=== PATIENT | female | born 1980 | race Caucasian/White ===

== ENCOUNTER 2021-02-08 09:37 | Outpatient (CLI) | payer MEDICARE, MEDICAID, SELFPAY ==
--- NOTE | 2021-02-11 15:35 | ONC CON_ITS ---
Dr. Morel New Patient Note Patient: Kyara Kim Unit #: [id number]: 1980 Dicatated By: Dewayne Morel M.D.Date of Visit: Feb 08, 2021 Onc MED New Patient/Consult Referring Physician: Referred Self History of Present Illness: Ms. Kyara Kim, is a 41-year-old female, as per medical record she was diagnosed with malignant melanoma of left thigh in 2011, at that time she underwent wide margin excision and sentinel lymph node biopsy which was negative so no adjuvant treatment was recommended and in January 2017 she presented to local hospital with weeklong history of headaches, visual changes, balance problem and weakness further evaluation with CT scan of head showing left occipital mass, and CT scan of chest abdomen pelvis done on December 18, 2016 showed metastatic disease in the bilateral lungs, adrenal glands, right kidney, bilateral hilum and mediastinum, suspicious for metastatic disease in the liver, splenic vein thrombosis, right breast nodule, suspicious for metastatic disease. Patient underwent craniotomy and resection of brain lesion on December 21, 2016, follow-up MRI scan of brain done on December 22, 2016 showed no residual tumor., At that time she was evaluated by Dr. Ferrara, radiation oncology and tumor bed radiation was done on January 31, 2017, patient had repeat CT scan of neck chest abdomen pelvis done on February 04, 2017 showing progression of disease and also noted to have new right frontal lobe 1 cm lesion, MRI scan of the brain was done on February 11, 2017, found to have ten new lesions in the brain, at that time she was offered gamma knife, which she tolerated well but continued to have a visual problem, unable to read. She was also started on Yervoy and Opdivo on February 04, 2017, patient completed four cycles of Yervoy and Opdivo but subsequently developed severe watery diarrhea, stool were negative for C. difficile and was diagnosed with checkpoint inhibitor induced colitis which was confirmed by CT scan abdomen findings, she was started on Solu-Medrol dose of 1 mg/kg, later increased to 2 mg/kg, with improvement in diarrhea and on April 24, 2017 she was discharged home on prednisone 70 mg twice a day for 10 days and then slow tapering off., Patient had MRI scan of her brain done on April 24, 2017 and follow-up from gamma knife surgery and it showed one site of disease progression in the brain and this lesion was in left cerebellum and all other sites were either smaller or resolved. And at that time Dr. Ferrara, radiation oncologist explained that one increasing lesion in the left cerebellum had been too small to treat previously, so she was treated with gamma knife again. Her single agent maintenance therapy with Opdivo was put on hold while she was on tapering dose of prednisone for checkpoint inhibitor induced colitis, as per medical record patient did receive dose of infliximab for her Opdivo induced colitis Patient was started on single agent Opdivo, which she tolerated well and during follow-up CT PET scans showed improvement or stable disease, as per patient her last CT PET scan done on March 06, 2020 noted to have improvement and some activity noted at the left ankle and forehead, may be possible benign and at that time she was recommended to continue with single agent Opdivo, as per medical record cycle #42 was given in March 2020 and after that she decided to move to [facility], and no further treatment or follow-up was done since March 2020 Patient 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 Appetite is good, weight is stable, patient still has visual problem which is chronic since she was diagnosed with brain mets and underwent surgery followed by radiation therapy and gamma knife treatment, all the treatments were done in [place] Past Medical History: Ms. Kim's medical history consists of anxiety, attention deficit hyperactivity disorder, depression, Luetschers syndrome, MELANOMA, and substance abuse. Past Surgical History: Ms. Kim's surgical/procedural history consists of caesarean section, cranioplasty for cranial defect, resection of brain tumor, and tubal ligation. Medications: There is no information available for Current Medications - Patient. Allergies: oxyCODONE HCl Social History: Ms. Kim is single. She is an occasional smoker who smokes 0.5 packs/day. She has no history of drinking. She has indicated exposure to the following products: recreational drug use. Family History: Ms. Kim's mother is alive: HEPATITIS C. Ms. Kim's father is alive. Ms. Kim has 1 brother who is alive: melanoma. She has 1 sister who is alive. Review Of Symptoms: Review of Systems is not available for this patient. Vital Signs: Performed on Feb 08, 2021 11:08: 0, 6, 26.15, 1.83 sq.m, 66 in, 98 %, 89 /min, 18 /min, 114/79 mm(hg), 97.7 F (LOW), and 162 lbs (HIGH). Performance Status: 0 - Fully active, able to carry on all predisease activities without restrictions. (ECOG) Physical Examination: ENMT - No mouth sores, no thrush, no jaundice, no cervical lymphadenopathy, Respiratory - Lungs are clear to auscultation, Cardiovascular - Regular rate and rhythm of heart, Abdomen - Soft, bowel sounds present, Extremities - No visible edema. Lab/Imaging: Most recent lab results are not available for this patient. Impression: History of malignant melanoma of left thigh diagnosed in 2011, at that time underwent wide excision and sentinel lymph node biopsy which was negative, no adjuvant therapy was offered, and November 2016, patient developed severe headaches and CT scan of the head done which showed left occipital mass and CT scan of chest abdomen pelvis done on December 18, 2016 showed metastatic disease to bilateral lungs, adrenal glands, right kidney, right breast, bilateral hilum and mediastinal lymphadenopathy, suspicious liver metastatic disease, splenic vein thrombosis. Underwent craniotomy and resection of left occipital mass on Dec 21 2016 follow-up MRI scan done on December 22, 2016 showed no residual tumor, patient treated with tumor bed radiation in January, follow-up CT scan of chest abdomen pelvis done on February 04, 2017 shows disease progression, new right frontal lobe lesion MRI scan of brain done on February 11, 2017 found 10 more new lesions at that time she was treated with gamma knife. Patient was started on Yervoy/Opdivo on February 04, 2017, recommended 4 doses were given subsequently she developed severe colitis CT scan of abdomen confirmed, patient was treated with high-dose steroids intravenously and also given dose of infliximab and patient was discharged home on tapering dose of high-dose prednisone, while on tapering dose of prednisone her maintenance single dose Opdivo was held which was restarted later and her follow-up scan showed stable or improvement patient completed 42 doses of Opdivo in March 2020 and her follow-up CT PET scan done on March 06, 2020 showed improvement in previously noted disease areas some activity noted in left ankle and forehead could be benign. All the treatments were done in [place], at that time patient decided to move to [facility], so no more treatment or follow-up since March 2020 History of recreational drug use methamphetamine History of chronic lower back pain Plan: Discussed with patient regarding her disease status, question concerns patient is here to establish her care and for further treatment or observation plan, at this point, based on her medical records, patient has history of extensive metastatic malignant melanoma, and no treatment received since March 2020 when she received cycle #42 of single agent Opdivo, after that patient stopped taking any treatment as she was in the process of moving to [facility] from [place]. So at this point will consider baseline CBC and CMP and also consider MRI scan of the head and CT PET scan to assess disease status and compare with 1 from February 2020 and if shows no disease progression stable or resolution, will continue to observe on the other hand if it shows disease progression, will consider guardant 360 to identify targetable mutation or may consider restarting Opdivo as in the past patient had good response and tolerance. We will also give her prescription for lorazepam for her anxiety. And patient return to clinic after CT PET scan/MRI scan done for further discussion Signed By: Dewayne Morel M.D. <<Signature on File>>
== END 2021-02-08 09:38 | disposition home or self-care (01) ==
LOC: ONCMED 09:48
PROVIDERS: Family Provider Family Medicine; Visit Provider Internal Medicine Hematology & Oncology
DX: C49.22 Malignant neoplasm of connective and soft tissue of left lower limb, including hip (principal); C78.01 Secondary malignant neoplasm of right lung; C78.02 Secondary malignant neoplasm of left lung; C79.71 Secondary malignant neoplasm of right adrenal gland; C79.72 Secondary malignant neoplasm of left adrenal gland; C79.01 Secondary malignant neoplasm of right kidney and renal pelvis; C79.81 Secondary malignant neoplasm of breast; C77.1 Secondary and unspecified malignant neoplasm of intrathoracic lymph nodes; C78.7 Secondary malignant neoplasm of liver and intrahepatic bile duct; C78.89 Secondary malignant neoplasm of other digestive organs; C79.31 Secondary malignant neoplasm of brain; F15.11 Other stimulant abuse, in remission; M54.5 Low back pain; G89.29 Other chronic pain; Z79.52 Long term (current) use of systemic steroids; Z79.899 Other long term (current) drug therapy; Z92.21 Personal history of antineoplastic chemotherapy
CPT/HCPCS: 99204

== ENCOUNTER 2021-02-20 12:38 | Outpatient (CLI) | payer MEDICARE, MEDICAID, SELFPAY ==
--- NOTE | 2021-02-20 13:21 | MR_ITS ---
WS: [id number] MRI HEAD WITH CONTRAST TECHNIQUE: Sagittal T1, T2 axial, T2 axial FLAIR, axial susceptibility weighted imaging, axial diffus ion weighted images, and coronal T2 images were obtained. Pre and post-T1 axial and post T1 coronal i mages. ADC and FSPGR images. CLINICAL INFORMATION: METASTATIC MELANOMA COMPARISON: None. FINDINGS: No evidence of restricted diffusion to suggest acute ischemia. Ventricular system and basal cisterns are patent. Enhancing lesion within the left inferior cerebellum measuring approximately 8.0 x 11.2 m m with corresponding T2 signal abnormality. Small amount of central cavitation. Findings suspicious f or metastatic disease. Recommend correlation with prior gamma knife therapy. Outside comparisons woul d be helpful if available. Evidence of prior postoperative changes with prior occipital craniotomy with resection cavity in the posterior temporal lobe. Associated serpiginous enhancement with encephalomalacia and gliosis. Small amount of hemosiderin. Patchy enhancement most likely due to post therapeutic and postoperative bradley es. Prior comparisons would be helpful to assess for change. Chronic focus of hemosiderin in the left frontoparietal junction. Chronic foci of hemosiderin in the left cerebellum. Normal optic chiasm and pituitary infundibulum. Normal cavernous sinuses and Meckel' s cave. No other abnormal enhancing intraparenchymal lesions. Normal dural venous sinuses. Peripheral enhancing T1 hyperintense suprasellar lesion along the pituitary infundibulum measuring ap proximately 6 mm. This is at the infundibular insertion. Normal underlying pituitary tissue. Associat ed T2 hyperintensity. 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 No significant mass effect on the optic chiasm. Infundibulum slightly displaced right to left. MR/MR head wo/w con [id number] IMPRESSION: 1. Prior postoperative changes left parietotemporal craniotomy with resection cavity in the posterior temporal lobe. Associated encephalomalacia and gliosis. Serpiginous enhancement with hemosiderin. Enhancement is nonspecific likely du e to postoperative and treatment-related changes. Comparison with outside exami nations would be helpful to assess stability. 2. Intensely enhancing lesion in the inferior left cerebellum measuring 8.0 x 11.2 mm. Associated T2 hyperintensity with central cavitation. Findings are sergei picious for metastatic disease however this can be seen with sequelae of prior gamma knife therapy. Recommend correlation with clinical history. Comparison wi outside examinations would be helpful to assess change. 3. A few foci of hemosiderin described above. 4. T1 hyperintense 6 mm peripheral enhancing suprasellar lesion most likely re presents incidental Rathke's cleft cyst. No significant impingement on the opti c chiasm. Recommend correlation with pituitary function studies. Recommend 3-6 month follow-up with MRI pituitary protocol without and with gadolinium enhance ment.
[2021-02-20] MEDS: gadobenate dimeglumine 20 mL vial IV (14:16)
== END 2021-02-20 12:39 | disposition home or self-care (01) ==
LOC: RADSHAW 12:42 → ONCMED 14:27
PROVIDERS: Visit Provider Internal Medicine Hematology & Oncology
DX: C43.72 Malignant melanoma of left lower limb, including hip (principal); C79.31 Secondary malignant neoplasm of brain; C79.89 Secondary malignant neoplasm of other specified sites; Z79.899 Other long term (current) drug therapy
CPT/HCPCS: 70553; 96523; A9577

== ENCOUNTER 2021-02-22 06:29 | Outpatient (CLI) | payer MEDICARE, MEDICAID, SELFPAY ==
[2021-02-22 13:45] LABS: Basophils # 0.1 10^3/uL (0.0-0.1); Basophils % 0.7 %; Eosinophils # 0.2 10^3/uL (0.0-0.8); Eosinophils % 2.3 %; Hematocrit 40.2 % (37.0-47.0); Hemoglobin 13.2 g/dL (11.5-15.3); Lymphocytes # 2.5 10^3/uL (0.8-4.8); Mean Corpuscular HGB Conc 32.8 g/dL (30.0-36.0); Mean Corpuscular Hemoglobin 31.1 pg (28.0-34.0); Mean Corpuscular Volume 94.8 fL (81-99); Mean Platelet Volume 10.2 fL (7.4-10.4); Monocytes # 0.7 10^3/uL (0.2-0.9); Monocytes % 9.3 %; Neutrophils # 3.61 10^3/uL (1.8-7.7); Neutrophils % 51.6 %; Nucleated Red Blood Cells % 0 %; Platelet Count 251 10^3/cmm (130-400); Red Blood Count 4.24 10^6/uL (4.1-5.3); Red Cell Distribution Width 12.3 % (12.1-15.1)
[2021-02-22 14:05] LABS: Alanine Aminotransferase 18 U/L (0-33); Albumin Level 4.3 g/dL (3.5-5.2); Alkaline Phosphatase 59 IU/L (35-105); Anion Gap 12.9 (5-19); Aspartate Amino Transferase 17 U/L (0-32); Blood Urea Nitrogen 7 mg/dL (6-20); Calcium 8.7 mg/dL (8.5-10.5); Carbon Dioxide 24 mmol/L (22-29); Chloride 101 mmol/L (98-107); Globulin 2.4 g/dL (1.3-4.6); Glomerular Filtration Rate 137.4 mL/min (90-130); Glucose 85 mg/dL (65-115); Osmolality Calculated 275 mOsm/kg (285-295); Potassium 3.9 mmol/L (3.5-5.1); Sodium 134 mmol/L (136-145); Total Bilirubin 0.2 mg/dL (0.15-1.2); Total Protein 6.7 g/dL (6.6-8.7)
== END 2021-02-22 06:30 | disposition home or self-care (01) ==
PROVIDERS: Visit Provider Internal Medicine Hematology & Oncology
DX: C43.72 Malignant melanoma of left lower limb, including hip (principal); C79.31 Secondary malignant neoplasm of brain; Z79.899 Other long term (current) drug therapy
CPT/HCPCS: 36415; 80053; 85025

== ENCOUNTER 2021-03-06 06:00 | Outpatient (CLI) | payer MEDICARE, MEDICAID, SELFPAY ==
[2021-03-06 08:45] LABS: Basophils # 0.1 10^3/uL (0.0-0.1); Basophils % 0.8 %; Eosinophils # 0.2 10^3/uL (0.0-0.8); Eosinophils % 2.1 %; Hematocrit 42.2 % (37.0-47.0); Hemoglobin 13.8 g/dL (11.5-15.3); Lymphocytes % 27.2 %; Mean Corpuscular HGB Conc 32.7 g/dL (30.0-36.0); Mean Corpuscular Hemoglobin 31.3 pg (28.0-34.0); Mean Corpuscular Volume 95.7 fL (81-99); Mean Platelet Volume 10.7 fL (7.4-10.4); Monocytes # 0.8 10^3/uL (0.2-0.9); Neutrophils % 58.8 %; Nucleated Red Blood Cells % 0 %; Platelet Count 231 10^3/cmm (130-400); Red Blood Count 4.41 10^6/uL (4.1-5.3); Red Cell Distribution Width 12.1 % (12.1-15.1); White Blood Count 7.2 10^3/uL (4.0-10.0)
[2021-03-06 09:16] LABS: Alanine Aminotransferase 16 U/L (0-33); Albumin Level 4.4 g/dL (3.5-5.2); Alkaline Phosphatase 55 IU/L (35-105); Anion Gap 15.2 (5-19); Aspartate Amino Transferase 15 U/L (0-32); Blood Urea Nitrogen 11 mg/dL (6-20); Calcium 8.6 mg/dL (8.5-10.5); Carbon Dioxide 23 mmol/L (22-29); Chloride 102 mmol/L (98-107); Globulin 2.2 g/dL (1.3-4.6); Glomerular Filtration Rate 137.4 mL/min (90-130); Glucose 90 mg/dL (65-115); Osmolality Calculated 281 mOsm/kg (285-295); Potassium 4.2 mmol/L (3.5-5.1); Sodium 136 mmol/L (136-145); Total Bilirubin 0.3 mg/dL (0.15-1.2); Total Protein 6.6 g/dL (6.6-8.7)
--- NOTE | 2021-03-06 17:39 | ONC FU_ITS ---
Dr. Morel follow up note Patient: Kyara Kim Unit #: [id number]: [id number] Dicatated By: Dewayne Morel M.D.Date of Visit:Mar 06, 2021 Onc Med Follow-up/Prog Note History of Present Illness: Ms. Kyara Kim, is a 41-year-old female, as per medical record she was diagnosed with malignant melanoma of left thigh in 2011, at that time she underwent wide margin excision and sentinel lymph node biopsy which was negative so no adjuvant treatment was recommended and in January 2017 she presented to local hospital with weeklong history of headaches, visual changes, balance problem and weakness further evaluation with CT scan of head showing left occipital mass, and CT scan of chest abdomen pelvis done on December 18, 2016 showed metastatic disease in the bilateral lungs, adrenal glands, right kidney, bilateral hilum and mediastinum, suspicious for metastatic disease in the liver, splenic vein thrombosis, right breast nodule, suspicious for metastatic disease. Patient underwent craniotomy and resection of brain lesion on December 21, 2016, follow-up MRI scan of brain done on December 22, 2016 showed no residual tumor., At that time she was evaluated by Dr. Ferrara, radiation oncology and tumor bed radiation was done on January 31, 2017, patient had repeat CT scan of neck chest abdomen pelvis done on February 04, 2017 showing progression of disease and also noted to have new right frontal lobe 1 cm lesion, MRI scan of the brain was done on February 11, 2017, found to have ten new lesions in the brain, at that time she was offered gamma knife, which she tolerated well but continued to have a visual problem, unable to read. She was also started on Yervoy and Opdivo on February 04, 2017, patient completed four cycles of Yervoy and Opdivo but subsequently developed severe watery diarrhea, stool were negative for C. difficile and was diagnosed with checkpoint inhibitor induced colitis which was confirmed by CT scan abdomen findings, she was started on Solu-Medrol dose of 1 mg/kg, later increased to 2 mg/kg, with improvement in diarrhea and on April 24, 2017 she was discharged home on prednisone 70 mg twice a day for 10 days and then slow tapering off., Patient had MRI scan of her brain done on April 24, 2017 and follow-up from gamma knife surgery and it showed one site of disease progression in the brain and this lesion was in left cerebellum and all other sites were either smaller or resolved. And at that time Dr. Ferrara, radiation oncologist explained that one increasing lesion in the left cerebellum had been too small to treat previously, so she was treated with gamma knife again. Her single agent maintenance therapy with Opdivo was put on hold while she was on tapering dose of prednisone for checkpoint inhibitor induced colitis, as per medical record patient did receive dose of infliximab for her Opdivo induced colitis Patient was started on single agent Opdivo, which she tolerated well and during follow-up CT PET scans showed improvement or stable disease, as per patient her last CT PET scan done on March 06, 2020 noted to have improvement and some activity noted at the left ankle and forehead, may be possible benign and at that time she was recommended to continue with single agent Opdivo, as per medical record cycle #42 was given in March 2020 and after that she decided to move to [facility], and no further treatment or follow-up was done since March 2020 Patient 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 And no other abnormality seen MRI scan of the brain done on February 20, 2021 showed no evidence of progression at left occipital resection cavity. Peripheral enhancing left cerebellar lesion measuring 9.3 x 7.3 mm has significantly increased in size since prior MRI scan done in 2019 with a new surrounding T2 signal abnormality Came for follow-up, denies any specific complaint except chronic back pain but no nausea or vomiting no diarrhea constipation, no headaches blurred vision double vision, no seizure-like activity, no new bony pains, appetite is good, now working full-time as a waiter/waitress buffet in a local restaurant Medications: This patient reports not taking external medications. Allergies: oxyCODONE HCl Review of Systems: Review of Systems is not available for this patient. Vital Signs: Performed on Mar 06, 2021 08:26 Height - 66.00 in Weight - 168.2 lbs (HIGH) BSA - 1.86 sq.m BMI - 27.15 Temperature - 97.8 F (LOW) Pulse - 89 /min Respiration - 18 /min BP - 111/76 mm(hg) O2 Sat - 98 % Pain - 5 Fatigue - 5 Performance Status: 0 - Fully active, able to carry on all predisease activities without restrictions. (ECOG) Physical Examination: ENMT - No mouth sores, no thrush, no jaundice, Respiratory - Lungs are clear to auscultation, Cardiovascular - Regular rate and rhythm of heart, Abdomen - Soft, bowel sounds present, Extremities - No visible edema. Lab/Imaging: Most recent lab results are not available for this patient. Impression: History of malignant melanoma of left thigh diagnosed in 2011, at that time underwent wide excision and sentinel lymph node biopsy which was negative, no adjuvant therapy was offered, and November 2016, patient developed severe headaches and CT scan of the head done which showed left occipital mass and CT scan of chest abdomen pelvis done on December 18, 2016 showed metastatic disease to bilateral lungs, adrenal glands, right kidney, right breast, bilateral hilum and mediastinal lymphadenopathy, suspicious liver metastatic disease, splenic vein thrombosis. Underwent craniotomy and resection of left occipital mass on Dec 21 2016 follow-up MRI scan done on December 22, 2016 showed no residual tumor, patient treated with tumor bed radiation in January, follow-up CT scan of chest abdomen pelvis done on February 04, 2017 shows disease progression, new right frontal lobe lesion MRI scan of brain done on February 11, 2017 found 10 more new lesions at that time she was treated with gamma knife. Patient was started on Yervoy/Opdivo on February 04, 2017, recommended 4 doses were given subsequently she developed severe colitis CT scan of abdomen confirmed, patient was treated with high-dose steroids intravenously and also given dose of infliximab and patient was discharged home on tapering dose of high-dose prednisone, while on tapering dose of prednisone her maintenance single dose Opdivo was held which was restarted later and her follow-up scan showed stable or improvement patient completed 42 doses of Opdivo in March 2020 and her follow-up CT PET scan done on March 06, 2020 showed improvement in previously noted disease areas some activity noted in left ankle and forehead could be benign. All the treatments were done in [place], at that time patient decided to move to [facility], so no more treatment or follow-up since March 2020 History of recreational drug use methamphetamine History of chronic lower back pain Plan: Discussed with patient regarding her labs white blood count 7.2 hemoglobin 13.8 hematocrit 42.2 platelets 231,000 CMP within normal limits and MRI scan of the head which shows 9.3 x 7.3 mm lesion in the left cerebellar area has significant increase in size since MRI scan done in 2019. And CT PET scan done on February 24, 2021 showed there is a minimal FDG activity noted in solitary 1.1 cm right axillary lymph node, no other abnormality seen Clinically, patient doing well with no new signs symptoms or follow-up PET scan shows solitary 1.1 cm right axillary lymph node with minimal FDG activity and MRI scan of the brain shows peripheral enhancing left cerebellar lesion 9.3 x 7.3 cm and no evidence of progression at left occipital resection cavity., At this point, will refer her to melanoma clinic at [place] for evaluation of left cerebellar lesion, as in the past patient underwent radiation therapy to the brain for brain mets as well as gamma knife to the left cerebellar lesion all the treatment were done in [place] and for single lesion in right axilla, may benefit from excisional biopsy and for evaluation for clinical trial if available She will return to clinic 1 week after her visit to [place] [facility] Signed By: Dewayne Morel M.D. <<Signature on File>>
== END 2021-03-06 06:01 | disposition home or self-care (01) ==
PROVIDERS: Visit Provider Internal Medicine Hematology & Oncology
DX: C79.31 Secondary malignant neoplasm of brain (principal); C78.01 Secondary malignant neoplasm of right lung; C78.02 Secondary malignant neoplasm of left lung; C79.71 Secondary malignant neoplasm of right adrenal gland; C79.72 Secondary malignant neoplasm of left adrenal gland; C79.01 Secondary malignant neoplasm of right kidney and renal pelvis; C79.81 Secondary malignant neoplasm of breast; C77.8 Secondary and unspecified malignant neoplasm of lymph nodes of multiple regions; C78.7 Secondary malignant neoplasm of liver and intrahepatic bile duct; I82.890 Acute embolism and thrombosis of other specified veins; F15.11 Other stimulant abuse, in remission; M54.5 Low back pain; G89.29 Other chronic pain; Z79.899 Other long term (current) drug therapy; Z92.21 Personal history of antineoplastic chemotherapy; Z92.3 Personal history of irradiation
CPT/HCPCS: 36591; 80053; 85025; 99214

== ENCOUNTER 2021-06-01 08:27 | Outpatient (CLI) | payer MEDICARE, MEDICAID, SELFPAY ==
[2021-06-01 09:00] LABS: Basophils # 0.1 10^3/uL (0.0-0.1); Basophils % 0.8 %; Eosinophils # 0.1 10^3/uL (0.0-0.8); Eosinophils % 1.9 %; Hemoglobin 13.7 g/dL (11.5-15.3); Lymphocytes # 2.2 10^3/uL (0.8-4.8); Lymphocytes % 30.2 %; Mean Corpuscular HGB Conc 34.3 g/dL (30.0-36.0); Mean Corpuscular Hemoglobin 32.5 pg (28.0-34.0); Mean Corpuscular Volume 94.8 fl (81-99); Mean Platelet Volume 10.3 fL (7.4-10.4); Monocytes # 0.7 10^3/uL (0.2-0.9); Monocytes % 9.3 %; Neutrophils % 57.5 %; Nucleated Red Blood Cells % 0 %; Platelet Count 244 10^3/cmm (130-400); Red Blood Count 4.22 10^6/uL (4.1-5.3); Red Cell Distribution Width 12.6 % (12.1-15.1); White Blood Count 7.3 10^3/uL (4.0-10.0)
[2021-06-01 09:26] LABS: Alanine Aminotransferase 17 U/L (0-33); Albumin Level 4.4 g/dL (3.5-5.2); Alkaline Phosphatase 61 IU/L (35-105); Anion Gap 13.7 (5-19); Aspartate Amino Transferase 15 U/L (0-32); Blood Urea Nitrogen 12 mg/dL (6-20); Calcium 9.4 mg/dL (8.5-10.5); Carbon Dioxide 26 mmol/L (22-29); Chloride 105 mmol/L (98-107); Globulin 2.7 g/dL (1.3-4.6); Glomerular Filtration Rate 137.4 mL/min (90-130); Glucose 104 mg/dL (65-115); Osmolality Calculated 290 mOsm/kg (285-295); Potassium 4.7 mmol/L (3.5-5.1); Sodium 140 mmol/L (136-145); Total Bilirubin 0.3 mg/dL (0.15-1.2); Total Protein 7.1 g/dL (6.6-8.7)
--- NOTE | 2021-06-01 11:42 | ONC FU_ITS ---
Dr. Morel follow up note Patient: Kyara Kim Unit #: [id number]: 1980 Dicatated By: Dewayne Morel M.D.Date of Visit:Jun 01, 2021 Onc Med Follow-up/Prog Note History of Present Illness: Ms. Kyara Kim, is a 41-year-old female, as per medical record she was diagnosed with malignant melanoma of left thigh in 2011, at that time she underwent wide margin excision and sentinel lymph node biopsy which was negative so no adjuvant treatment was recommended and in January 2017 she presented to local hospital with weeklong history of headaches, visual changes, balance problem and weakness further evaluation with CT scan of head showing left occipital mass, and CT scan of chest abdomen pelvis done on December 18, 2016 showed metastatic disease in the bilateral lungs, adrenal glands, right kidney, bilateral hilum and mediastinum, suspicious for metastatic disease in the liver, splenic vein thrombosis, right breast nodule, suspicious for metastatic disease. Patient underwent craniotomy and resection of brain lesion on December 21, 2016, follow-up MRI scan of brain done on December 22, 2016 showed no residual tumor., At that time she was evaluated by Dr. Ferrara, radiation oncology and tumor bed radiation was done on January 31, 2017, patient had repeat CT scan of neck chest abdomen pelvis done on February 04, 2017 showing progression of disease and also noted to have new right frontal lobe 1 cm lesion, MRI scan of the brain was done on February 11, 2017, found to have ten new lesions in the brain, at that time she was offered gamma knife, which she tolerated well but continued to have a visual problem, unable to read. She was also started on Yervoy and Opdivo on February 04, 2017, patient completed four cycles of Yervoy and Opdivo but subsequently developed severe watery diarrhea, stool were negative for C. difficile and was diagnosed with checkpoint inhibitor induced colitis which was confirmed by CT scan abdomen findings, she was started on Solu-Medrol dose of 1 mg/kg, later increased to 2 mg/kg, with improvement in diarrhea and on April 24, 2017 she was discharged home on prednisone 70 mg twice a day for 10 days and then slow tapering off., Patient had MRI scan of her brain done on April 24, 2017 and follow-up from gamma knife surgery and it showed one site of disease progression in the brain and this lesion was in left cerebellum and all other sites were either smaller or resolved. And at that time Dr. Ferrara, radiation oncologist explained that one increasing lesion in the left cerebellum had been too small to treat previously, so she was treated with gamma knife again. Her single agent maintenance therapy with Opdivo was put on hold while she was on tapering dose of prednisone for checkpoint inhibitor induced colitis, as per medical record patient did receive dose of infliximab for her Opdivo induced colitis Patient was started on single agent Opdivo, which she tolerated well and during follow-up CT PET scans showed improvement or stable disease, as per patient her last CT PET scan done on March 06, 2020 noted to have improvement and some activity noted at the left ankle and forehead, may be possible benign and at that time she was recommended to continue with single agent Opdivo, as per medical record cycle #42 was given in March 2020 and after that she decided to move to [facility], and no further treatment or follow-up was done since March 2020 Patient 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 And no other abnormality seen MRI scan of the brain done on February 20, 2021 showed no evidence of progression at left occipital resection cavity. Peripheral enhancing left cerebellar lesion measuring 9.3 x 7.3 mm has significantly increased in size since prior MRI scan done in 2019 with a new surrounding T2 signal abnormality Patient was referred to melanoma clinic at [facility] where she was evaluated on May 08, [address] PET scan on May 08, 2021 which showed no evidence of local recurrence or ronnie/distant metastatic disease., 4.7 cm fluid attenuation involving right ovary. And MRI scan of the brain done on same day at [place] showed persistent left cerebellar enhancing hemorrhagic lesion which likely represent metastatic disease. Susceptibility foci in the left postcentral gyrus and left cerebellar peripherally without enhancement could represent treated disease. Postsurgical change of left occipital craniotomy, left occipital pole enhancement with blood products and surrounding FLAIR hyperintensity. Could represent postsurgical change. Came for follow-up, denies any specific complaints, no fever chills, no nausea or vomiting, no diarrhea or constipation, no melena hematochezia, no hemoptysis or hematemesis, no headaches blurred vision or double vision, no abdominal pain or fullness. Medications: clonazePAM (1 mg) Tablet Oral b.i.d., Escitalopram Oxalate 1 Tablet (of 10 mg) Oral daily Allergies: oxyCODONE HCl Review of Systems: Review of Systems is not available for this patient. Vital Signs: Vitals are not available for this patient. Performance Status: 0 - Fully active, able to carry on all predisease activities without restrictions. (ECOG) Physical Examination: ENMT - No mouth sores, no thrush, no jaundice, Respiratory - Lungs are clear to auscultation, Cardiovascular - Regular rate and rhythm of heart, Abdomen - Soft, bowel sounds present, Extremities - No visible edema. Lab/Imaging: Most recent lab results are not available for this patient. Impression: History of malignant melanoma of left thigh diagnosed in 2011, at that time underwent wide excision and sentinel lymph node biopsy which was negative, no adjuvant therapy was offered, and November 2016, patient developed severe headaches and CT scan of the head done which showed left occipital mass and CT scan of chest abdomen pelvis done on December 18, 2016 showed metastatic disease to bilateral lungs, adrenal glands, right kidney, right breast, bilateral hilum and mediastinal lymphadenopathy, suspicious liver metastatic disease, splenic vein thrombosis. Underwent craniotomy and resection of left occipital mass on Dec 21 2016 follow-up MRI scan done on December 22, 2016 showed no residual tumor, patient treated with tumor bed radiation in January, follow-up CT scan of chest abdomen pelvis done on February 04, 2017 shows disease progression, new right frontal lobe lesion MRI scan of brain done on February 11, 2017 found 10 more new lesions at that time she was treated with gamma knife. Patient was started on Yervoy/Opdivo on February 04, 2017, recommended 4 doses were given subsequently she developed severe colitis CT scan of abdomen confirmed, patient was treated with high-dose steroids intravenously and also given dose of infliximab and patient was discharged home on tapering dose of high-dose prednisone, while on tapering dose of prednisone her maintenance single dose Opdivo was held which was restarted later and her follow-up scan showed stable or improvement patient completed 42 doses of Opdivo in March 2020 and her follow-up CT PET scan done on March 06, 2020 showed improvement in previously noted disease areas some activity noted in left ankle and forehead could be benign. All the treatments were done in [place], at that time patient decided to move to [facility], so no more treatment or follow-up since March 2020 History of recreational drug use methamphetamine History of chronic lower back pain Plan: Discussed with patient regarding her labs white blood count 7.3 hemoglobin 13.7 hematocrit 40 platelets 244,000 CMP within normal limits Clinically, patient is doing well with no new signs symptoms history of recurrence of disease, patient was referred to melanoma clinic at [place] for left cerebellar lesion seen on MRI scan done in January 2021, as per note from melanoma clinic at [place] they could not get MRI scan from [facility] for comparison with MRI scan of head done on May 08, 2021 and after comparison they will call the patient but somehow patient said she never got called from melanoma clinic at [place]. Patient said she was also advised to see ASSAULT AMPHIBIOUS VEHICLE OFFICER for right ovarian lesion and patient is requesting local ASSAULT AMPHIBIOUS VEHICLE OFFICER for evaluation. At this point, will refer her to ASSAULT AMPHIBIOUS VEHICLE OFFICER for right ovarian mass evaluation, as far as left cerebellar mass seen on MRI scan is concerned, will call melanoma clinic at [place] for further discussion regarding follow-up for management. Patient is going back to [place] in mid May till June 2021, in that case we will see her back after she comes back from [place]. Signed By: Dewayne Morel M.D. <<Signature on File>>
== END 2021-06-01 08:28 | disposition home or self-care (01) ==
PROVIDERS: PCP Physician Assistant; Visit Provider Internal Medicine Hematology & Oncology
DX: Z08 Encounter for follow-up examination after completed treatment for malignant neoplasm (principal); Z85.820 Personal history of malignant melanoma of skin; F15.21 Other stimulant dependence, in remission; M54.50 Low back pain, unspecified; G89.29 Other chronic pain; Z79.899 Other long term (current) drug therapy; Z92.21 Personal history of antineoplastic chemotherapy
CPT/HCPCS: 36591; 80053; 85025; 99214

== ENCOUNTER 2021-07-24 09:33 | Outpatient (CLI) | payer MEDICARE, MEDICAID, SELFPAY ==
--- NOTE | 2021-07-26 15:25 | ONC FU_ITS ---
Dr. Morel follow up note Patient: Kyara Kim Unit #: [id number]: [id number] Dicatated By: Dewayne Morel M.D.Date of Visit:Jul 24, 2021 Onc Med Follow-up/Prog Note History of Present Illness: Ms. Kyara Kim, is a 41-year-old female, as per medical record she was diagnosed with malignant melanoma of left thigh in 2011, at that time she underwent wide margin excision and sentinel lymph node biopsy which was negative so no adjuvant treatment was recommended and in January 2017 she presented to local hospital with weeklong history of headaches, visual changes, balance problem and weakness further evaluation with CT scan of head showing left occipital mass, and CT scan of chest abdomen pelvis done on December 18, 2016 showed metastatic disease in the bilateral lungs, adrenal glands, right kidney, bilateral hilum and mediastinum, suspicious for metastatic disease in the liver, splenic vein thrombosis, right breast nodule, suspicious for metastatic disease. Patient underwent craniotomy and resection of brain lesion on December 21, 2016, follow-up MRI scan of brain done on December 22, 2016 showed no residual tumor., At that time she was evaluated by Dr. Ferrara, radiation oncology and tumor bed radiation was done on January 31, 2017, patient had repeat CT scan of neck chest abdomen pelvis done on February 04, 2017 showing progression of disease and also noted to have new right frontal lobe 1 cm lesion, MRI scan of the brain was done on February 11, 2017, found to have ten new lesions in the brain, at that time she was offered gamma knife, which she tolerated well but continued to have a visual problem, unable to read. She was also started on Yervoy and Opdivo on February 04, 2017, patient completed four cycles of Yervoy and Opdivo but subsequently developed severe watery diarrhea, stool were negative for C. difficile and was diagnosed with checkpoint inhibitor induced colitis which was confirmed by CT scan abdomen findings, she was started on Solu-Medrol dose of 1 mg/kg, later increased to 2 mg/kg, with improvement in diarrhea and on April 24, 2017 she was discharged home on prednisone 70 mg twice a day for 10 days and then slow tapering off., Patient had MRI scan of her brain done on April 24, 2017 and follow-up from gamma knife surgery and it showed one site of disease progression in the brain and this lesion was in left cerebellum and all other sites were either smaller or resolved. And at that time Dr. Ferrara, radiation oncologist explained that one increasing lesion in the left cerebellum had been too small to treat previously, so she was treated with gamma knife again. Her single agent maintenance therapy with Opdivo was put on hold while she was on tapering dose of prednisone for checkpoint inhibitor induced colitis, as per medical record patient did receive dose of infliximab for her Opdivo induced colitis Patient was started on single agent Opdivo, which she tolerated well and during follow-up CT PET scans showed improvement or stable disease, as per patient her last CT PET scan done on March 06, 2020 noted to have improvement and some activity noted at the left ankle and forehead, may be possible benign and at that time she was recommended to continue with single agent Opdivo, as per medical record cycle #42 was given in March 2020 and after that she decided to move to 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 And no other abnormality seen MRI scan of the brain done on February 20, 2021 showed no evidence of progression at left occipital resection cavity. Peripheral enhancing left cerebellar lesion measuring 9.3 x 7.3 mm has significantly increased in size since prior MRI scan done in 2019 with a new surrounding T2 signal abnormality Patient was referred to melanoma clinic at [facility] where she was evaluated on May 08, [address] PET scan on May 08, 2021 which showed no evidence of local recurrence or ronnie/distant metastatic disease., 4.7 cm fluid attenuation involving right ovary. And MRI scan of the brain done on same day at [place] showed persistent left cerebellar enhancing hemorrhagic lesion which likely represent metastatic disease. Susceptibility foci in the left postcentral gyrus and left cerebellar peripherally without enhancement could represent treated disease. Postsurgical change of left occipital craniotomy, left occipital pole enhancement with blood products and surrounding FLAIR hyperintensity. Could represent postsurgical change. Came for follow-up, denies any specific complaint except off and on blurred vision in order part of right eye visual field for the last 2 weeks, not sure what triggers it or relieves it but she has history of migraine headaches, for which she go to chiropractor, as per patient with neck manipulation, her migraine improves. As per patient she was recently seen by her PMD and was started on Lexapro, which is causing mild generalized weakness and fatigue, she is supposed to see PMD at 1 PM today to discuss further. Denies any seizure-like activity denies any focal weakness denies any nausea or vomiting. Patient said she did not get any call from [place] melanoma clinic, as per patient they were supposed to call her after MRI scan of the head comparison with 1 from [place] done in January 2021 and also awaiting TOWEL ROLLING MACHINE OPERATOR evaluation.Patient was out of town for the last couple of months, now came back. Medications: clonazePAM (1 mg) Tablet Oral b.i.d., Escitalopram Oxalate 1 Tablet (of 10 mg) Oral daily, IBU 1 Tablet (of 800 mg) Oral daily Allergies: oxyCODONE HCl Review of Systems: Review of Systems is not available for this patient. Vital Signs: Performed on Jul 24, 2021 10:13 Height - 66.00 in Weight - 175.4 lbs (HIGH) BSA - 1.89 sq.m BMI - 28.31 Temperature - 97.9 F (LOW) Pulse - 85 /min Respiration - 18 /min BP - 125/87 mm(hg) O2 Sat - 96 % Pain - 0 Fatigue - 6 Performance Status: 0 - Fully active, able to carry on all predisease activities without restrictions. (ECOG) Physical Examination: ENMT - No mouth sores, no thrush, no jaundice, Respiratory - Lungs are clear to auscultation, Cardiovascular - Regular rate and rhythm of heart, Abdomen - Soft, bowel sounds present, Extremities - No visible edema. Lab/Imaging: Most recent lab results are not available for this patient. Impression: History of malignant melanoma of left thigh diagnosed in 2011, at that time underwent wide excision and sentinel lymph node biopsy which was negative, no adjuvant therapy was offered, and November 2016, patient developed severe headaches and CT scan of the head done which showed left occipital mass and CT scan of chest abdomen pelvis done on December 18, 2016 showed metastatic disease to bilateral lungs, adrenal glands, right kidney, right breast, bilateral hilum and mediastinal lymphadenopathy, suspicious liver metastatic disease, splenic vein thrombosis. Underwent craniotomy and resection of left occipital mass on Dec 21 2016 follow-up MRI scan done on December 22, 2016 showed no residual tumor, patient treated with tumor bed radiation in January, follow-up CT scan of chest abdomen pelvis done on February 04, 2017 shows disease progression, new right frontal lobe lesion MRI scan of brain done on February 11, 2017 found 10 more new lesions at that time she was treated with gamma knife. Patient was started on Yervoy/Opdivo on February 04, 2017, recommended 4 doses were given subsequently she developed severe colitis CT scan of abdomen confirmed, patient was treated with high-dose steroids intravenously and also given dose of infliximab and patient was discharged home on tapering dose of high-dose prednisone, while on tapering dose of prednisone her maintenance single dose Opdivo was held which was restarted later and her follow-up scan showed stable or improvement patient completed 42 doses of Opdivo in March 2020 and her follow-up CT PET scan done on March 06, 2020 showed improvement in previously noted disease areas some activity noted in left ankle and forehead could be benign. All the treatments were done in [place], at that time patient decided to move to [facility], so no more treatment or follow-up since March 2020 History of recreational drug use methamphetamine History of chronic lower back pain Plan: Discussed with patient regarding her concern and disease status. We will rerefer her to TOWEL ROLLING MACHINE OPERATOR for ovarian mass evaluation seen on recent CT PET scan, and also discussed with Benita Brar, melanoma clinic at [place] regarding MRI scan of the head findings when compared with MRI scan done here in [place] in January 2021. And further planning As far as, off and on blurriness in right eye outer visual field is concerned, could be due to migraine or could be due to intracranial pathology or could be medication induced patient was recently started on Lexapro or could be due to cell phone or computer. Patient was advised to monitor triggering or relieving factors and if there is a worsening, may consider MRI scan of the head, if normal, will refer her to ophthalmology. She will return to clinic in 1 month for further discussion and planning, in the meantime we will contact melanoma clinic at [place], and patient will have TOWEL ROLLING MACHINE OPERATOR evaluation For ovarian mass done. Signed By: Dewayne Morel M.D. <<Signature on File>>
== END 2021-07-24 09:34 | disposition home or self-care (01) ==
PROVIDERS: PCP Physician Assistant; Visit Provider Internal Medicine Hematology & Oncology
DX: C43.9 Malignant melanoma of skin, unspecified (principal); Z79.899 Other long term (current) drug therapy; Z85.9 Personal history of malignant neoplasm, unspecified
CPT/HCPCS: 99214

== ENCOUNTER → 2021-08-21 12:36 | Outpatient (BNVA) | payer MEDICARE, MEDICAID, SELFPAY | PROVIDERS: PCP Physician Assistant; Visit Provider Nurse Practitioner Family | DX: Z20.822 Contact with and (suspected) exposure to COVID-19 (principal) | CPT/HCPCS: 87635 ==

== ENCOUNTER 2021-08-24 08:11 | Outpatient (CLI) | payer MEDICARE, MEDICAID, SELFPAY ==
--- NOTE | 2021-08-24 09:40 | ONC FU_ITS ---
Dr. Morel follow up note Patient: Kyara Kim Unit #: [id number]: 1980 Dicatated By: Dewayne Morel M.D.Date of Visit:Aug 24, 2021 Onc Med Follow-up/Prog Note History of Present Illness: Ms. Kyara Kim, is a 41-year-old female, as per medical record she was diagnosed with malignant melanoma of left thigh in 2011, at that time she underwent wide margin excision and sentinel lymph node biopsy which was negative so no adjuvant treatment was recommended and in January 2017 she presented to local hospital with weeklong history of headaches, visual changes, balance problem and weakness further evaluation with CT scan of head showing left occipital mass, and CT scan of chest abdomen pelvis done on December 18, 2016 showed metastatic disease in the bilateral lungs, adrenal glands, right kidney, bilateral hilum and mediastinum, suspicious for metastatic disease in the liver, splenic vein thrombosis, right breast nodule, suspicious for metastatic disease. Patient underwent craniotomy and resection of brain lesion on December 21, 2016, follow-up MRI scan of brain done on December 22, 2016 showed no residual tumor., At that time she was evaluated by Dr. Ferrara, radiation oncology and tumor bed radiation was done on January 31, 2017, patient had repeat CT scan of neck chest abdomen pelvis done on February 04, 2017 showing progression of disease and also noted to have new right frontal lobe 1 cm lesion, MRI scan of the brain was done on February 11, 2017, found to have ten new lesions in the brain, at that time she was offered gamma knife, which she tolerated well but continued to have a visual problem, unable to read. She was also started on Yervoy and Opdivo on February 04, 2017, patient completed four cycles of Yervoy and Opdivo but subsequently developed severe watery diarrhea, stool were negative for C. difficile and was diagnosed with checkpoint inhibitor induced colitis which was confirmed by CT scan abdomen findings, she was started on Solu-Medrol dose of 1 mg/kg, later increased to 2 mg/kg, with improvement in diarrhea and on April 24, 2017 she was discharged home on prednisone 70 mg twice a day for 10 days and then slow tapering off., Patient had MRI scan of her brain done on April 24, 2017 and follow-up from gamma knife surgery and it showed one site of disease progression in the brain and this lesion was in left cerebellum and all other sites were either smaller or resolved. And at that time Dr. Ferrara, radiation oncologist explained that one increasing lesion in the left cerebellum had been too small to treat previously, so she was treated with gamma knife again. Her single agent maintenance therapy with Opdivo was put on hold while she was on tapering dose of prednisone for checkpoint inhibitor induced colitis, as per medical record patient did receive dose of infliximab for her Opdivo induced colitis Patient was started on single agent Opdivo, which she tolerated well and during follow-up CT PET scans showed improvement or stable disease, as per patient her last CT PET scan done on March 06, 2020 noted to have improvement and some activity noted at the left ankle and forehead, may be possible benign and at that time she was recommended to continue with single agent Opdivo, as per medical record cycle #42 was given in March 2020 and after that she decided to move to [facility], and no further treatment or follow-up was done since March 2020 Patient 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 And no other abnormality seen MRI scan of the brain done on February 20, 2021 showed no evidence of progression at left occipital resection cavity. Peripheral enhancing left cerebellar lesion measuring 9.3 x 7.3 mm has significantly increased in size since prior MRI scan done in 2019 with a new surrounding T2 signal abnormality Patient was referred to melanoma clinic at [facility] where she was evaluated on May 08, [address] PET scan on May 08, 2021 which showed no evidence of local recurrence or ronnie/distant metastatic disease., 4.7 cm fluid attenuation involving right ovary. And MRI scan of the brain done on same day at [facility] showed persistent left cerebellar enhancing hemorrhagic lesion which likely represent metastatic disease. Susceptibility foci in the left postcentral gyrus and left cerebellar peripherally without enhancement could represent treated disease. Postsurgical change of left occipital craniotomy, left occipital pole enhancement with blood products and surrounding FLAIR hyperintensity. Could represent postsurgical change. Came for follow-up, denies any specific complaints, no fever chills, no nausea or vomiting, no diarrhea constipation, headache is much better, since chiropractor worked on her spine, no blurred vision or double vision, as per patient she did see local [employer] for her ovarian mass and referred to [employer] surgical oncology is pending. Also discussed with melanoma clinic at [facility] who recommended MRI scan of the head and CT PET scan, patient is scheduled for MRI scan of the head on coming Friday morning. Denies any abdominal pain denies any vaginal bleeding denies any new bony pains. Medications: clonazePAM (1 mg) Tablet Oral b.i.d., Escitalopram Oxalate 1 Tablet (of 20 mg) Oral daily, IBU 1 Tablet (of 800 mg) Oral daily Allergies: oxyCODONE HCl Review of Systems: Review of Systems is not available for this patient. Vital Signs: Performed on Aug 24, 2021 08:48 Height - 66.00 in Weight - 186.2 lbs (HIGH) BSA - 1.94 sq.m BMI - 30.05 (HIGH) Temperature - 97.5 F (LOW) Pulse - 91 /min Respiration - 18 /min BP - 115/81 mm(hg) O2 Sat - 97 % Pain - 0 Fatigue - 4 Performance Status: 0 - Fully active, able to carry on all predisease activities without restrictions. (ECOG) Physical Examination: ENMT - No mouth sores, no thrush, no jaundice, Respiratory - Lungs are clear to auscultation, Cardiovascular - Regular rate and rhythm of heart, Abdomen - Soft, bowel sounds present, Extremities - No visible edema. Lab/Imaging: Most recent lab results are not available for this patient. Impression: History of malignant melanoma of left thigh diagnosed in 2011, at that time underwent wide excision and sentinel lymph node biopsy which was negative, no adjuvant therapy was offered, and November 2016, patient developed severe headaches and CT scan of the head done which showed left occipital mass and CT scan of chest abdomen pelvis done on December 18, 2016 showed metastatic disease to bilateral lungs, adrenal glands, right kidney, right breast, bilateral hilum and mediastinal lymphadenopathy, suspicious liver metastatic disease, splenic vein thrombosis. Underwent craniotomy and resection of left occipital mass on Dec 21 2016 follow-up MRI scan done on December 22, 2016 showed no residual tumor, patient treated with tumor bed radiation in January, follow-up CT scan of chest abdomen pelvis done on February 04, 2017 shows disease progression, new right frontal lobe lesion MRI scan of brain done on February 11, 2017 found 10 more new lesions at that time she was treated with gamma knife. Patient was started on Yervoy/Opdivo on February 04, 2017, recommended 4 doses were given subsequently she developed severe colitis CT scan of abdomen confirmed, patient was treated with high-dose steroids intravenously and also given dose of infliximab and patient was discharged home on tapering dose of high-dose prednisone, while on tapering dose of prednisone her maintenance single dose Opdivo was held which was restarted later and her follow-up scan showed stable or improvement patient completed 42 doses of Opdivo in March 2020 and her follow-up CT PET scan done on March 06, 2020 showed improvement in previously noted disease areas some activity noted in left ankle and forehead could be benign. All the treatments were done in [place], at that time patient decided to move to [facility], so no more treatment or follow-up since March 2020 History of recreational drug use methamphetamine History of chronic lower back pain Plan: Discussed with patient regarding her disease status and question concerns, as per patient her headaches improved with chiropractor's help. No blurred vision no double vision, she is also requesting for prescription for clonazepam,, has seen local [employer] recently who is referring her to [employer] surgical oncologist for ovarian mass management. Patient did talk to melanoma clinic at [facility] and follow-up MRI scan of head and PET scan was recommended, patient is already scheduled for MRI scan of the head to be done on Friday morning and we will schedule her for CT PET scan, and she will return to clinic after CT PET scan, We will coordinate her care with melanoma clinic at [facility] Signed By: Dewayne Morel M.D. <<Signature on File>>
== END 2021-08-24 08:12 | disposition home or self-care (01) ==
PROVIDERS: PCP Physician Assistant; Visit Provider Internal Medicine Hematology & Oncology
DX: Z08 Encounter for follow-up examination after completed treatment for malignant neoplasm (principal); Z85.820 Personal history of malignant melanoma of skin; Z85.828 Personal history of other malignant neoplasm of skin; Z85.118 Personal history of other malignant neoplasm of bronchus and lung; Z85.528 Personal history of other malignant neoplasm of kidney; Z85.3 Personal history of malignant neoplasm of breast; Z85.79 Personal history of other malignant neoplasms of lymphoid, hematopoietic and related tissues; G89.29 Other chronic pain; M54.50 Low back pain, unspecified; Z79.899 Other long term (current) drug therapy
CPT/HCPCS: 99214

== ENCOUNTER 2021-08-27 08:02 | Outpatient (CLI) | payer MEDICARE, MEDICAID, SELFPAY ==
--- NOTE | 2021-08-27 08:08 | MR_ITS ---
WS: [id number] MRI BRAIN WITH AND WITHOUT CONTRAST HISTORY: Restaging evaluation. COMPARISON: 02/20/2021, 03/15/2019 TECHNIQUE: Multiplanar imaging performed through the brain with MultiHance 19 ml's IV. No restricted diffusion to suggest an acute ischemic event. No significant change in the white matter abnormalities. There is no midline shift or mass effect. Ventricles are normal size. Again noted is a peripherally enhancing lesion within the LEFT inferior cerebellum with a small amoun t of hemosiderin and this nodule measures 7 x 8 mm which has decreased in size since the prior study. No progression. There are additional scattered hemosiderin depositions within the LEFT cerebellum. Prior LEFT occipital craniotomy with resection cavity involving the LEFT occipital lobe. There is adj acent encephalomalacia and gliosis and a small amount of stable serpiginous enhancement. Overall the resection cavity and the enhancement has not progressed. Probably post therapeutic. No new enhancing lesions. Suprasellar nonenhancing 4 mm mass is reidentified. May be a small adenoma. Paranasal sinuses: Well aerated with no significant disease. Mastoid air cells: Small amount of fluid and increased signal in the RIGHT mastoid air cells. Calvarium and scalp: No new lesions. Postoperative changes in the LEFT occipital region. MR/MR head wo/w con [id number] IMPRESSION: 1. Slight decrease in size of the peripherally enhancing cavitary nodule with hemosiderin in the LEFT cerebellum now measuring 7 x 8 mm. 2. No significant change in the serpiginous enhancing mass in the LEFT occipit al region with adjacent craniectomy. The extent of the serpiginous enhancement is similar to prior studies. Probably posttreatment in etiology. 3. New enhancing lesions. 4. No progression of metastatic disease or new infarct.
[2021-08-27] MEDS: gadobenate dimeglumine 20 mL vial IV (09:31)
== END 2021-08-27 08:03 | disposition home or self-care (01) ==
LOC: RAD 08:04
PROVIDERS: PCP Physician Assistant; Visit Provider Internal Medicine Hematology & Oncology
DX: C43.72 Malignant melanoma of left lower limb, including hip (principal); C79.31 Secondary malignant neoplasm of brain
CPT/HCPCS: 70553

== ENCOUNTER 2021-09-07 07:52 | Outpatient (CLI) | payer MEDICARE, MEDICAID, SELFPAY ==
--- NOTE | 2021-09-10 18:25 | ONC FU_ITS ---
Dr. Morel follow up note Patient: Kyara Kim Unit #: [id number]: [id number] Dicatated By: Dewayne Morel M.D.Date of Visit:Sep 07, 2021 Onc Med Follow-up/Prog Note History of Present Illness: Ms. Kyara Kim, is a 41-year-old female, as per medical record she was diagnosed with malignant melanoma of left thigh in 2011, at that time she underwent wide margin excision and sentinel lymph node biopsy which was negative so no adjuvant treatment was recommended and in January 2017 she presented to local hospital with weeklong history of headaches, visual changes, balance problem and weakness further evaluation with CT scan of head showing left occipital mass, and CT scan of chest abdomen pelvis done on December 18, 2016 showed metastatic disease in the bilateral lungs, adrenal glands, right kidney, bilateral hilum and mediastinum, suspicious for metastatic disease in the liver, splenic vein thrombosis, right breast nodule, suspicious for metastatic disease. Patient underwent craniotomy and resection of brain lesion on December 21, 2016, follow-up MRI scan of brain done on December 22, 2016 showed no residual tumor., At that time she was evaluated by Dr. Ferrara, radiation oncology and tumor bed radiation was done on January 31, 2017, patient had repeat CT scan of neck chest abdomen pelvis done on February 04, 2017 showing progression of disease and also noted to have new right frontal lobe 1 cm lesion, MRI scan of the brain was done on February 11, 2017, found to have ten new lesions in the brain, at that time she was offered gamma knife, which she tolerated well but continued to have a visual problem, unable to read. She was also started on Yervoy and Opdivo on February 04, 2017, patient completed four cycles of Yervoy and Opdivo but subsequently developed severe watery diarrhea, stool were negative for C. difficile and was diagnosed with checkpoint inhibitor induced colitis which was confirmed by CT scan abdomen findings, she was started on Solu-Medrol dose of 1 mg/kg, later increased to 2 mg/kg, with improvement in diarrhea and on April 24, 2017 she was discharged home on prednisone 70 mg twice a day for 10 days and then slow tapering off., Patient had MRI scan of her brain done on April 24, 2017 and follow-up from gamma knife surgery and it showed one site of disease progression in the brain and this lesion was in left cerebellum and all other sites were either smaller or resolved. And at that time Dr. Ferrara, radiation oncologist explained that one increasing lesion in the left cerebellum had been too small to treat previously, so she was treated with gamma knife again. Her single agent maintenance therapy with Opdivo was put on hold while she was on tapering dose of prednisone for checkpoint inhibitor induced colitis, as per medical record patient did receive dose of infliximab for her Opdivo induced colitis Patient was started on single agent Opdivo, which she tolerated well and during follow-up CT PET scans showed improvement or stable disease, as per patient her last CT PET scan done on March 06, 2020 noted to have improvement and some activity noted at the left ankle and forehead, may be possible benign and at that time she was recommended to continue with single agent Opdivo, as per medical record cycle #42 was given in March 2020 and after that she decided to move to [facility], and no further treatment or follow-up was done since March 2020 Patient 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 And no other abnormality seen MRI scan of the brain done on February 20, 2021 showed no evidence of progression at left occipital resection cavity. Peripheral enhancing left cerebellar lesion measuring 9.3 x 7.3 mm has significantly increased in size since prior MRI scan done in 2019 with a new surrounding T2 signal abnormality Patient was referred to melanoma clinic at [facility] where she was evaluated on May 08, [address] PET scan on May 08, 2021 which showed no evidence of local recurrence or ronnie/distant metastatic disease., 4.7 cm fluid attenuation involving right ovary. And MRI scan of the brain done on same day at [facility] showed persistent left cerebellar enhancing hemorrhagic lesion which likely represent metastatic disease. Susceptibility foci in the left postcentral gyrus and left cerebellar peripherally without enhancement could represent treated disease. Postsurgical change of left occipital craniotomy, left occipital pole enhancement with blood products and surrounding FLAIR hyperintensity. Could represent postsurgical change. Follow-up CT PET scan done on August 25, 2021 showed postsurgical changes from prior craniotomy, negative for recurrence, resolution of questionable right axillary lymph node seen on prior scan done on February 24, 2021, started lysing disease in the right radial and unchanged since January 2021 study. Follow-up MRI scan of the brain done on August 27, 2021 showed slight decrease in size peripherally enhancing cavitary nodule with hemosiderin in the left cerebellum now measures 7 x 8 mm. No significant changes in the serpiginous enhancing mass in the left occipital region with adjacent craniotomy, similar to seen on prior studies. No new enhancing lesions. No progression of disease or new infarct. Came for follow-up, denies any specific complaints, no fever chills, no nausea or vomiting, no diarrhea constipation, no headaches blurred vision or double vision, no new bony pains, no weight loss, appetite is good, overall doing well, patient was referred to melanoma clinic at [facility] and was recommended follow-up MRI scan of the brain and CT PET scan but due to convenience patient decided to get scan done is here locally ,Patient has already overnight her scans to Dr. Ngo's office at [facility] for review and further recommendation. Medications: clonazePAM (1 mg) Tablet Oral b.i.d., Escitalopram Oxalate 1 Tablet (of 20 mg) Oral daily, Flonase (50 mcg/act) Suspension Nasal Take as Directed, IBU 1 Tablet (of 800 mg) Oral daily, Multi Adult Gummies 1 Tablet Tablet, chewable Oral daily Allergies: oxyCODONE HCl Review of Systems: Review of Systems is not available for this patient. Vital Signs: Performed on Sep 07, 2021 08:04 Height - 66.00 in Weight - 190.8 lbs (HIGH) BSA - 1.96 sq.m BMI - 30.80 (HIGH) Temperature - 97.5 F (LOW) Pulse - 88 /min Respiration - 16 /min BP - 118/76 mm(hg) O2 Sat - 97 % Pain - 0 Fatigue - 5 Performance Status: 0 - Fully active, able to carry on all predisease activities without restrictions. (ECOG) Physical Examination: ENMT - No mouth sores, no thrush, no jaundice, Respiratory - Lungs are clear to auscultation, Cardiovascular - Regular rate and rhythm of heart, Abdomen - Soft, bowel sounds present, Extremities - No visible edema. Lab/Imaging: Most recent lab results are not available for this patient. Impression: History of malignant melanoma of left thigh diagnosed in 2011, at that time underwent wide excision and sentinel lymph node biopsy which was negative, no adjuvant therapy was offered, and November 2016, patient developed severe headaches and CT scan of the head done which showed left occipital mass and CT scan of chest abdomen pelvis done on December 18, 2016 showed metastatic disease to bilateral lungs, adrenal glands, right kidney, right breast, bilateral hilum and mediastinal lymphadenopathy, suspicious liver metastatic disease, splenic vein thrombosis. Underwent craniotomy and resection of left occipital mass on Dec 21 2016 follow-up MRI scan done on December 22, 2016 showed no residual tumor, patient treated with tumor bed radiation in January, follow-up CT scan of chest abdomen pelvis done on February 04, 2017 shows disease progression, new right frontal lobe lesion MRI scan of brain done on February 11, 2017 found 10 more new lesions at that time she was treated with gamma knife. Patient was started on Yervoy/Opdivo on February 04, 2017, recommended 4 doses were given subsequently she developed severe colitis CT scan of abdomen confirmed, patient was treated with high-dose steroids intravenously and also given dose of infliximab and patient was discharged home on tapering dose of high-dose prednisone, while on tapering dose of prednisone her maintenance single dose Opdivo was held which was restarted later and her follow-up scan showed stable or improvement patient completed 42 doses of Opdivo in March 2020 and her follow-up CT PET scan done on March 06, 2020 showed improvement in previously noted disease areas some activity noted in left ankle and forehead could be benign. All the treatments were done in [place], at that time patient decided to move to [facility], so no more treatment or follow-up since March 2020 History of recreational drug use methamphetamine History of chronic lower back pain Plan: Discussed with patient regarding her follow-up CT PET scan which was done on August 25, 2021 showed postsurgical changes from prior craniotomy, negative for recurrence, resolution of questionable right axillary lymph node seen on prior scan done on February 24, 2021. Sterilize disease in the right adrenal, unchanged since February 14. An MRI scan of the brain which was done on August 27, 2021 showed slight decrease in size of peripherally enhancing cavitary nodule with hemosiderin in the left cerebellum now measuring 7 x 8 mm. No significant change in serpiginous enhancing mass in left occipital region with adjacent craniectomy, similar to prior studies, probably posttreatment changes. No new enhancing lesions. No progression of metastatic disease or new infarct. Clinically, patient is doing well with no new signs symptom suggestive of disease progression, patient was referred to melanoma clinic at [facility] for evaluation for persistent brain lesion and clinical trials, if available or second opinion, follow-up CT PET scan and MRI scan of brain was recommended but due to inconvenience patient decided to get the scans done locally and she has already overnight her scans to melanoma clinic at [facility] now awaiting further recommendations. At this point, as her follow-up scan shows no evidence of disease progression or recurrence of disease, will monitor and she will return to clinic in 6 months with CBC CMP Signed By: Dewayne Morel M.D. <<Signature on File>>
== END 2021-09-07 07:53 | disposition home or self-care (01) ==
LOC: ONCMED 07:53
PROVIDERS: PCP Physician Assistant; Visit Provider Internal Medicine Hematology & Oncology
DX: Z08 Encounter for follow-up examination after completed treatment for malignant neoplasm (principal); Z85.820 Personal history of malignant melanoma of skin; Z85.841 Personal history of malignant neoplasm of brain; F15.21 Other stimulant dependence, in remission; M54.50 Low back pain, unspecified; Z79.899 Other long term (current) drug therapy; Z92.25 Personal history of immunosuppression therapy
CPT/HCPCS: 99214

== ENCOUNTER 2021-11-18 12:35 | Emergency (ER) | payer MEDICARE, MEDICAID, SELFPAY ==
[2021-11-18 12:55] VITALS: BP 116/79; PULSE 86; RESP 18; TEMP 37.2; O2SAT 95; BMI 32.3
--- NOTE | 2021-11-18 13:15 | W.ED.NAVMDI ---
HPI - Nausea/Vomiting/Diarrhea General: Chief complaint: Nausea/Vomiting/Diarrhea Stated complaint: flu exposure Time Seen by Provider: 11/18/21 13:06 Source: patient Mode of arrival: ambulatory Limitations: no limitations History of Present Illness: Patient is a 41-year-old female presents to ED today with a complaint of nausea, vomiting, and diarrhea. Patient states several days ago she began having body aches following a positive fluid exposure. She had a telehealth visit and Tamiflu was called in. She has been taking this as prescribed. Patient states she never ran fevers. Patient states she did eat Steak [employer]ake prior to her vomiting and diarrhea starting. She has not had any blood in her emesis or stools. She is not complaining of abdominal pains. She has no URI symptoms. MD elicited complaint: nausea, vomiting and diarrhea Onset (ago): day(s) (yesterday) Description of diarrhea: watery Associated nausea: Yes Associated abdominal pain: No Exacerbating factors: eating Associated symtoms: Reports nausea; Denies chest pain, dysuria, fatigue, headache(s) or malaise Review of Systems Const: Denies: fever(s), chills, body aches, fatigue or malaise ENMT: Denies: throat pain, odynophagia, nasal discharge or nasal congestion Card: Denies: chest pain Resp: Denies: dyspnea, productive cough, non-productive cough or chest congestion GI: Reports: nausea; Denies: abdominal pain : Denies: flank pain or dysuria Musc: Denies: neck pain, back pain, extremity pain or joint pain Skin/Breast: Denies: rash Neuro: Denies: headache(s) PFS ED PFSH: Medical History (Updated 11/18/21 @ 15:15 by MIKI Gamboa) Anxiety Depression History of colitis History of 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 Status post gamma knife treatment had 4 different procedures Surgical History (Updated 08/18/21 @ 18:11 by Nayla Irizarry MD) History of bilateral tubal ligation 2010 History of History of cryosurgery History of endometrial ablation 2011 Family History (Updated 08/16/21 @ 08:08 by Raquel Rodriguez LPN) Brother Cancer Melanoma Family/Other Cancer Maternal uncle--melanoma Family/Other Cancer Maternal uncle--liver Denies family history of Diabetes CAD (coronary artery disease) Clotting disorder Hyperlipidemia Chronic kidney disease (CKD) Bleeding disorder Hypertension Stroke Social History (Updated 08/21/21 @ 11:48 by Rachel Vee NP) Smoking and tobacco status: current every day smoker e-cigarettes E-Cigarette Details: vaporizer device Physical Exam Const: COMMON NORMALS: no acute distress, patient oriented x3, no limitations and alert GENERAL APPEARANCE: cooperative ORIENTATION/CONSCIOUSNESS: Yes awake, Yes oriented to person, Yes oriented to place and Yes oriented to time HENMT: COMMON NORMALS: normocephalic and atraumatic HEAD & SCALP: normal to inspection, normocephalic and atraumatic Neck/C-Spine: COMMON NORMALS: full ROM, no lymphadenopathy and no meningeal signs Resp: COMMON NORMALS: normal respiratory effort and clear to auscultation bilaterally AUSCULTATION: clear to auscultation bilaterally Cardio: COMMON NORMALS: regular rate and regular rhythm RATE: regular rate RHYTHM: regular rhythm GI: COMMON NORMALS: Normal to inspection, nondistended, normoactive bowel sounds present, Soft to palpation, No hepatosplenomegaly present and no masses AUSCULTATION: Yes normoactive bowel sounds PALPATION: Yes Soft to palpation, Yes Tenderness to palpation present (GI) (very mild diffuse-non surgical abdomen) and Yes No hepatosplenomegaly present : COMMON NORMALS: Yes no CVA tenderness BLADDER/KIDNEY EXAM: Yes no CVA tenderness Back/Pelvis: COMMON NORMALS: no CVA tenderness Extremity: COMMON NORMALS: normal to inspection Neuro: TIA COMA SCALE: document GCS findings Tia coma scale eye opening: Spontaneous [place] coma scale verbal response: Orientated Tia coma scale motor response: Obey commands Tia coma scale total score: 15 COMMON NORMALS: patient oriented x3, moves all extremities, no focal motor deficits, no sensory deficits noted and gait normal SENSORIUM/ORIENTATION: Yes alert, Yes oriented to person, Yes oriented to place and Yes oriented to time MENINGEAL SIGNS: Yes no meningeal signs Skin: COMMON NORMALS: no rashes or lesions noted GENERAL SKIN EXAM: no rashes or lesions noted Course Vital Signs: Vital signs: Vital Signs Temperature 99 F 11/18/21 12:55 Pulse Rate 86 11/18/21 12:55 Respiratory Rate 18 11/18/21 12:55 Blood Pressure 116/79 11/18/21 12:55 Pulse Oximetry 95 11/18/21 12:55 MDM - Nausea/Vomiting/Diarrhea Medical Decision Making Patient has not had any vomiting or diarrhea during her stay. Her vital signs are perfect. Labs overall are non-concerning. She has some mild hypocalcemia. This can be rechecked through PCP. Influenza negative. She was given a liter of fluids and Zofran with relief of her symptoms. Recommend conservative treatment at home. Return to ED precautions given. Lab Data : 11/18/21 14:00 11/18/21 14:00 Laboratory Results WBC 3.7 10^3/uL (4.0-10.0) L 11/18/21 14:00 RBC 4.19 10^6/uL (4.1-5.3) 11/18/21 14:00 Hgb 13.0 g/dL (11.5-15.3) 11/18/21 14:00 Hct 39.1 % (37.0-47.0) 11/18/21 14:00 MCV 93.3 fl (81-99) 11/18/21 14:00 MCH 31.0 pg (28.0-34.0) 11/18/21 14:00 MCHC 33.2 g/dL (30.0-36.0) 11/18/21 14:00 RDW 11.9 % (12.1-15.1) L 11/18/21 14:00 Plt Count 195 10^3/cmm (130-400) 11/18/21 14:00 MPV 10.0 fL (7.4-10.4) 11/18/21 14:00 Neut % (Auto) 45.0 % 11/18/21 14:00 Lymph % (Auto) 36.1 % 11/18/21 14:00 [place] % (Auto) 16.7 % 11/18/21 14:00 Eos % (Auto) 1.4 % 11/18/21 14:00 Baso % (Auto) 0.8 % 11/18/21 14:00 Neut # (Auto) 1.65 10^3/uL (1.8-7.7) L 11/18/21 14:00 Lymph # (Auto) 1.3 10^3/uL (0.8-4.8) 11/18/21 14:00 [place] # (Auto) 0.6 10^3/uL (0.2-0.9) 11/18/21 14:00 Eos # (Auto) 0.1 10^3/uL (0.0-0.8) 11/18/21 14:00 Baso # (Auto) 0.0 10^3/uL (0.0-0.1) 11/18/21 14:00 Nucleated RBC % (auto) 0 % 11/18/21 14:00 Nucleated RBCs # 0.0 /100WBC 11/18/21 14:00 Sodium 137 mmol/L (136-145) 11/18/21 14:00 Potassium 3.9 mmol/L (3.5-5.1) 11/18/21 14:00 Chloride 103 mmol/L (98-107) 11/18/21 14:00 Carbon Dioxide 23 mmol/L (22-29) 11/18/21 14:00 Anion Gap 14.9 (5-19) 11/18/21 14:00 BUN 8 mg/dL (6-20) 11/18/21 14:00 Creatinine 0.7 mg/dL (0.5-0.9) 11/18/21 14:00 GFR Calculation 93.2 mL/min (90-130) 11/18/21 14:00 Glucose 88 mg/dL (65-115) 11/18/21 14:00 Calculated Osmolality 282 mOsm/kg (285-295) L 11/18/21 14:00 Calcium 8.0 mg/dL (8.5-10.5) L 11/18/21 14:00 Total Bilirubin 0.3 mg/dL (0.15-1.2) 11/18/21 14:00 AST 27 U/L (0-32) 11/18/21 14:00 ALT 37 U/L (0-33) H 11/18/21 14:00 Alkaline Phosphatase 69 IU/L (35-105) 11/18/21 14:00 Total Protein 6.7 g/dL (6.6-8.7) 11/18/21 14:00 Albumin 4.3 g/dL (3.5-5.2) 11/18/21 14:00 Globulin 2.4 g/dL (1.3-4.6) 11/18/21 14:00 Influenza Type A Ag Negative (Negative) 11/18/21 14:28 Influenza Type B Ag Negative (Negative) 11/18/21 14:28 Discharge Plan Discharge Patient Disposition: Home Clinical Impression: Nausea, vomiting and diarrhea Condition: Stable Prescriptions: New ondansetron 4 mg tablet,disintegrating 4 mg PO Q8H PRN (Reason: nausea and vomiting) Qty: 14 0RF No Action cetirizine [Zyrtec] 10 mg tablet 10 mg PO DAILY PRN0RF escitalopram oxalate [Lexapro] 10 mg tablet 10 mg PO DAILY 0RF clonazepam [Klonopin] 1 mg tablet 1 mg PO BID 0RF ibuprofen 800 mg tablet 800 mg PO DAILY 0RF oseltamivir [Tamiflu] 75 mg capsule 75 mg PO BID 5 Days Qty: 10 0RF Discharge Orders: Discharge ED (Routine); Ordered 11/18/21 Ordered By: Amy Keenan Referrals: Olivia Read PA [Primary Care Provider] - Coding Level of Care Code ED Carpenter Supervisor for Chg Fwd Exam Comprehensive
[2021-11-18] MEDS: ondansetron 2 mg/ML SDV 2 mL 4 MG IVP (13:54)
[2021-11-18] MEDS: sodium chloride 0.9% 1,000 ML 999 ML IV (13:55)
[2021-11-18 14:08] LABS: Basophils % 0.8 %; Eosinophils # 0.1 10^3/uL (0.0-0.8); Eosinophils % 1.4 %; Hematocrit 39.1 % (37.0-47.0); Lymphocytes # 1.3 10^3/uL (0.8-4.8); Lymphocytes % 36.1 %; Mean Corpuscular HGB Conc 33.2 g/dL (30.0-36.0); Mean Corpuscular Volume 93.3 fl (81-99); Monocytes # 0.6 10^3/uL (0.2-0.9); Monocytes % 16.7 %; Neutrophils # 1.65 10^3/uL (1.8-7.7); Nucleated Red Blood Cells % 0 %; Platelet Count 195 10^3/cmm (130-400); Red Blood Count 4.19 10^6/uL (4.1-5.3); Red Cell Distribution Width 11.9 % (12.1-15.1); White Blood Count 3.7 10^3/uL (4.0-10.0)
[2021-11-18 14:44] LABS: Slide Review Slide Review Perform
[2021-11-18] MEDS: acetaminophen 500 mg Tablet 1000 MG PO (14:52)
[2021-11-18 14:58] LABS: Alanine Aminotransferase 37 U/L (0-33); Albumin Level 4.3 g/dL (3.5-5.2); Alkaline Phosphatase 69 IU/L (35-105); Anion Gap 14.9 (5-19); Aspartate Amino Transferase 27 U/L (0-32); Blood Urea Nitrogen 8 mg/dL (6-20); Carbon Dioxide 23 mmol/L (22-29); Chloride 103 mmol/L (98-107); Globulin 2.4 g/dL (1.3-4.6); Glomerular Filtration Rate 93.2 mL/min (90-130); Glucose 88 mg/dL (65-115); Osmolality Calculated 282 mOsm/kg (285-295); Potassium 3.9 mmol/L (3.5-5.1); Sodium 137 mmol/L (136-145); Total Bilirubin 0.3 mg/dL (0.15-1.2); Total Protein 6.7 g/dL (6.6-8.7)
[2021-11-18 15:00] LABS: Influenza A by IFA Negative (Negative); Influenza B by IFA Negative (Negative)
== END 2021-11-18 15:25 | disposition home or self-care (01) ==
PROVIDERS: Emergency Provider Physician Assistant; PCP Physician Assistant
DX: R11.2 Nausea with vomiting, unspecified (principal); R19.7 Diarrhea, unspecified; E83.51 Hypocalcemia; F17.290 Nicotine dependence, other tobacco product, uncomplicated
CPT/HCPCS: 80053; 85025; 87804; 96361; 96374; 99283; J2405; J7030

== ENCOUNTER 2022-03-08 10:27 | Oncology outpatient (recurring) (ONCR) | payer MEDICARE, MEDICAID, SELFPAY ==
--- NOTE | 2022-03-05 12:37 | MR_ITS ---
WS: [id number] MRI HEAD WITH CONTRAST TECHNIQUE: Sagittal T1, T2 axial, T2 axial FLAIR, axial susceptibility weighted imaging, axial diffus ion weighted images, and coronal T2 images were obtained. Pre and post-T1 axial and post T1 coronal i mages. ADC and FSPGR images. CLINICAL INFORMATION: MALIGNANT NEOPLASM OF BRAIN COMPARISON: MRI 08/27/2021 and 01/2021 FINDINGS: No evidence of restricted diffusion to suggest acute ischemia. Ventricular system and basal cisterns are patent. Stable postoperative LEFT occipital craniotomy with parasagittal occipital resection cavi ty. Similar-appearing surrounding encephalomalacia and gliosis with associated hemosiderin. No eviden ce of increasing edema or mass effect to suggest disease progression. Small amount of associated serp iginous enhancement is similar to previous likely related to treatment-related changes. Previously described tiny enhancing lesion LEFT cerebellum has further decreased in size with decreas ed T2 signal abnormality. Small amount of residual enhancement has improved. No evidence of disease p rogression in this area. No new foci of abnormal gadolinium enhancement. 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 Mild mucosal thickening in the RIGHT greater than LEFT mastoid air cells. Paranasal sinuses are well aerated. Mild mucosal thickening in the ethmoid air cells. Stable punctate focus of hemosiderin in th e LEFT frontoparietal junction and LEFT cerebellar hemisphere laterally. MR/MR head wo/w con [id number] IMPRESSION: 1. No evidence of disease progression compared to the prior examinations. 2. Stable LEFT occipital resection cavity without evidence of progression. Sta ble associated serpiginous enhancement likely treatment related. 3. Peripheral enhancing LEFT cerebellar lesion has decreased size with improve d T2 signal abnormality. Associated hemosiderin. 4. 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
[2022-03-05] MEDS: gadobenate dimeglumine 20 mL vial IV (13:45)
--- NOTE | 2022-03-07 11:49 | CT_ITS ---
WS: [id number] CT CHEST, ABDOMEN, AND PELVIS TECHNIQUE: Contrast-enhanced CT of the chest, abdomen, and pelvis with coronal and sagittal reformatt ed images. CLINICAL INFORMATION: FOLLOW UP COMPARISON: PET/CT 08/25/2021 and 02/24/2021 DLP: 1606.[address] scans at [facility] use at least one of these dose optimization techniques: automated e xposure control; mA and/or kV adjustment per patient size (includes targeted exams where dose is matc hed to clinical indication); or iterative reconstruction. CT CHEST: Normal caliber thoracic aorta. Normal caliber descending thoracic aorta. Proximal main pulmonary kash eleno are normal. No mediastinal or hilar lymphadenopathy. Normal partially visualized thyroid gland. No axillary lymphadenopathy. Both lungs are well aerated. No acute pulmonary infiltrates. No suspicious pulmonary parenchymal norm alities. Slight atelectasis in the RIGHT middle lobe and lingula. Calcified granuloma RIGHT lower lob e. CT ABDOMEN AND PELVIS: Mild diffuse fatty infiltration the liver. Normal portal vein and splenic vein. Small amount of focal fat along the falciform ligament. Normal spleen. Normal pancreas. Normal caliber abdominal aorta. Ce liac and SMA are patent. Stable RIGHT adrenal lesion with peripheral calcification measuring 2.5 x 3. 5 CM. Normal LEFT adrenal gland. No hydronephrosis in either kidney. Simple LEFT renal cyst measuring 8 mm. No abdominal or pelvic lymphadenopathy. No inguinal lymphadenopathy. RIGHT ovarian cyst measur ing 3.8 x [address]/CT chest abd pel w con* IMPRESSION: 1. No evidence of metastatic disease in the chest. 2. No evidence of new or progressed metastatic disease in the abdomen or pelvi s. 3. Stable RIGHT peripherally calcified adrenal lesion measuring 2.5 x 3.5 cm u nchanged since the PET/CT. 4. Stable simple appearing RIGHT ovarian cyst measuring 3.8 x 3.5 CM. 5. No adenopathy in the abdomen or pelvis. 6. No other suspicious findings.
[2022-03-07] MEDS: barium sulfate 450 mL Oral Susp PO (13:07)
[2022-03-07 13:43] LABS: Basophils % 0.5 %; Eosinophils # 0.2 10^3/uL (0.0-0.8); Eosinophils % 2.2 %; Hematocrit 38.2 % (37.0-47.0); Hemoglobin 12.8 g/dL (11.5-15.3); Lymphocytes # 2.1 10^3/uL (0.8-4.8); Lymphocytes % 26.3 %; Mean Corpuscular HGB Conc 33.5 g/dL (30.0-36.0); Mean Corpuscular Volume 92.5 fl (81-99); Mean Platelet Volume 10.2 fL (7.4-10.4); Monocytes # 0.5 10^3/uL (0.2-0.9); Monocytes % 6.8 %; Neutrophils % 63.9 %; Nucleated Red Blood Cells % 0 %; Platelet Count 253 10^3/cmm (130-400); Red Blood Count 4.13 10^6/uL (4.1-5.3); Red Cell Distribution Width 12.3 % (12.1-15.1); White Blood Count 7.8 10^3/uL (4.0-10.0)
[2022-03-07] MEDS: iohexol 350 mg/mL 100 mL Btl IV (13:58)
[2022-03-07 14:06] LABS: Alanine Aminotransferase 16 U/L (0-33); Albumin Level 4.3 g/dL (3.5-5.2); Alkaline Phosphatase 72 IU/L (35-105); Anion Gap 13.1 (5-19); Aspartate Amino Transferase 15 U/L (0-32); Blood Urea Nitrogen 9 mg/dL (6-20); Calcium 8.9 mg/dL (8.5-10.5); Carbon Dioxide 29 mmol/L (22-29); Chloride 104 mmol/L (98-107); Globulin 2.4 g/dL (1.3-4.6); Glomerular Filtration Rate 110.7 mL/min (90-130); Glucose 86 mg/dL (65-115); Osmolality Calculated 292 mOsm/kg (285-295); Potassium 4.1 mmol/L (3.5-5.1); Sodium 142 mmol/L (136-145); Total Bilirubin 0.2 mg/dL (0.15-1.2); Total Protein 6.7 g/dL (6.6-8.7)
[2022-03-07 14:09] VITALS: BP 123/86; PULSE 91; RESP 18; TEMP 36.8; O2SAT 96
== END 2022-03-27 23:59 | disposition home or self-care (01) ==
PROVIDERS: Internal Medicine Hematology & Oncology; PCP Physician Assistant; Visit Provider Nurse Practitioner Family
DX: N83.8 Other noninflammatory disorders of ovary, fallopian tube and broad ligament (principal); Z08 Encounter for follow-up examination after completed treatment for malignant neoplasm; Z92.3 Personal history of irradiation; Z92.25 Personal history of immunosuppression therapy; Z85.820 Personal history of malignant melanoma of skin; Z85.841 Personal history of malignant neoplasm of brain
CPT/HCPCS: 36591; 70553; 71260; 74177; 80053; 85025; 99214; G0463

== ENCOUNTER 2022-10-22 12:53 | Oncology outpatient (recurring) (ONCR) | payer MEDICARE, MEDICAID, SELFPAY | END 2022-10-25 23:59 | disposition home or self-care (01) | PROVIDERS: PCP Physician Assistant; Visit Provider Internal Medicine Hematology & Oncology | DX: Z53.9 Procedure and treatment not carried out, unspecified reason (principal) ==

== ENCOUNTER 2022-11-08 19:19 | Emergency (ER) | payer MEDICARE, MEDICAID, SELFPAY ==
--- NOTE | 2022-11-08 19:36 | XRR_ITS ---
PROCEDURE INFORMATION: Exam: XR Chest Exam date and time: 11/08/2022 7:56 PM Age: 42 years old Clinical indication: Cough; Additional info: Flu like symptoms TECHNIQUE: Imaging protocol: Radiologic exam of the chest. Views: 1 view. COMPARISON: CT chest abdpel w/*[id number] 03/07/2022 1:52 PM FINDINGS: Tubes, catheters and devices: Central venous access catheter or port is seen on the right, appearing in good position with tip of the catheter at the expected level of the cavoatrial junction. Lungs: Small amount interstitial infiltrate is seen in the lung bases with mild subsegmental atelectasis. No consolidation. Minimal benign healed granulomatous disease. Pleural spaces: Unremarkable. No pleural effusion. No pneumothorax. Heart/Mediastinum: Unremarkable. No cardiomegaly. Bones/joints: No acute osseous abnormality. XR/XR chest 1V portable [id number] IMPRESSION: Small amount of interstitial infiltrate within the lung bases with mild subsegmental atelectasis suggesting small amount of basilar pneumonia.
[2022-11-08 19:48] VITALS: BP 142/102; PULSE 90; RESP 16; TEMP 36.2; O2SAT 97; BMI 31.4
[2022-11-08 20:53] VITALS: BP 158/97; PULSE 99; RESP 16; O2SAT 96
--- NOTE | 2022-11-08 20:54 | W.ED.URI ---
HPI - URI/Sore Throat General: Chief Complaint: Headache Stated Complaint: flu like symptoms, cancer patient Time Seen by Provider: 11/08/22 20:46 History of Present Illness: Patient is a 42-year-old female comes to the ED with upper respiratory symptoms. Patient has metastatic melanoma. She is not currently on any chemo treatment. This past week she was seen up in [place] for a brain scan and they found a new lesion. Patient is scheduled to go to [place] this coming Friday for further imaging and PET scan. Today patient woke up and she had a sore throat and some nasal congestion. She started developing subjective fever, chills, headache and body aches. Denies any chest pain, shortness of breath, nausea/vomiting, abdominal pain, bladder or bowel symptoms. Associated symptoms: Reports chills, fever(s), headache(s) and nasal congestion; Deny abdominal pain, chest pain, diarrhea, ear or mastoid pain, nausea or vomiting Review of Systems Const: Reports: fever(s), chills and body aches; Denies: fatigue Eyes: Denies: change in vision or eye discomfort ENMT: Reports: throat pain and nasal congestion; Denies: odynophagia, ear or mastoid pain or nasal discharge Card: Denies: chest pain, palpitations, edema, swelling of feet/ankles, dyspnea on exertion or orthopnea Resp: Denies: dyspnea, productive cough or non-productive cough GI: Denies: abdominal pain, nausea, vomiting, diarrhea, constipation or hematochezia : Denies: flank pain, dysuria or hematuria Musc: Denies: neck pain, back pain or extremity swelling Skin/Breast: Denies: rash or new lesions Neuro: Reports: headache(s); Denies: numbness in extremities or weakness in extremities PFSH ED PFSH: Medical History Anxiety Depression History of colitis History of 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, including hip Psychiatric care Secondary malignant neoplasm of brain Status post gamma knife treatment had 4 different procedures Surgical History History of bilateral tubal ligation 2010 History of History of cryosurgery History of endometrial ablation 2011 Family History Brother Cancer Melanoma Family/Other Cancer Maternal uncle--melanoma Family/Other Cancer Maternal uncle--liver Denies family history of Diabetes CAD (coronary artery disease) Clotting disorder Hyperlipidemia Chronic kidney disease (CKD) Bleeding disorder Hypertension Stroke Social History Smoking and tobacco status: current every day smoker (0.5 ppd) e-cigarettes E-Cigarette Details: vaporizer device Alcohol intake: never Physical Exam Const: COMMON NORMALS: no acute distress, patient oriented x3, healthy appearing and alert GENERAL APPEARANCE: cooperative and comfortable HENMT: COMMON NORMALS: normocephalic, external ears normal, EAC's normal and TM's normal bilaterally HEAD & SCALP: normocephalic EXTERNAL EAR: Yes external ears normal EXTERNAL AUDITORY CANAL: EAC's normal TYMPANIC MEMBRANE: TM's normal bilaterally MOUTH: Normal oral and palatal mucosa present THROAT: uvula midline and posterior oropharynx abnormal erythema; no exudates Neck/C-Spine: COMMON NORMALS: supple GENERAL: Yes normal visual inspection Resp: COMMON NORMALS: normal respiratory effort, No retractions, No use of accessory muscles and clear to auscultation bilaterally AUSCULTATION: clear to auscultation bilaterally Cardio: COMMON NORMALS: regular rate, regular rhythm, S1 normal heart sound present, S2 normal heart sound present, No gallops present (Cardio), No clicks present (Cardio), No murmurs present (Cardio) and Peripheral pulses 2+ throughout RATE: regular rate RHYTHM: regular rhythm HEART SOUNDS: S1 normal heart sound present and S2 normal heart sound present PERIPHERAL PULSES: Peripheral pulses 2+ throughout GI: COMMON NORMALS: Normal to inspection, nondistended, normoactive bowel sounds present, Soft to palpation, non-tender and no masses PALPATION: Yes Soft to palpation : COMMON NORMALS: Yes no CVA tenderness BLADDER/KIDNEY EXAM: Yes no CVA tenderness Back/Pelvis: COMMON NORMALS: no CVA tenderness Extremity: COMMON NORMALS: normal to inspection Neuro: COMMON NORMALS: patient oriented x3 SENSORIUM/ORIENTATION: Yes alert GAIT: Yes Normal gait present Skin: GENERAL SKIN EXAM: dry skin Course Vital Signs: Vital signs: Vital Signs Temperature 97.2 F L 11/08/22 22:30 Pulse Rate 90 11/08/22 22:30 Respiratory Rate 14 11/08/22 22:30 Blood Pressure 121/91 11/08/22 22:30 Pulse Oximetry 98 11/08/22 22:30 Oxygen Delivery Me thod Room Air 11/08/22 22:00 MDM - URI/Sore Throat Medical Decision Making Patient is a 42-year-old female comes to the ED with upper respiratory symptoms. Patient has metastatic melanoma. She is not currently on any chemo treatment. This past week she was seen up in [place] for a brain scan and they found a new lesion. Patient is scheduled to go to [place] this coming Friday for further imaging and PET scan. Today patient woke up and she had a sore throat and some nasal congestion. She started developing subjective fever, chills, headache and body aches. Denies any chest pain, shortness of breath, nausea/vomiting, abdominal pain, bladder or bowel symptoms. Vital stable. Patient appears nontoxic in no acute distress or pain. Exam is benign. White blood cell count 12.4 the rest of CBC and CMP are unremarkable. Chest x-ray shows small amount of basilar pneumonia. Influenza and COVID were both negative. Patient was diagnosed with pneumonia and sent home with a prescription for antibiotic. Told to follow-up with PCP in the next week for reevaluation. Return to ED precautions given. Patient understood agree with plan. Lab Data I reviewed the patient's lab results. 11/08/22 21:52 11/08/22 21:52 Radiology Impressions Chest X-Ray 11/08/22 19:36 IMPRESSION: Small amount of interstitial infiltrate within the lung bases with mild subsegmental atelectasis suggesting small amount of basilar pneumonia. Laboratory Results WBC 12.4 10^3/uL (4.0-10.0) H 11/08/22 21:52 Corrected WBC Cancelled 11/08/22 21:07 RBC 4.09 10^6/uL (4.1-5.3) L 11/08/22 21:52 Hgb 12.7 g/dL (11.5-15.3) 11/08/22 21:52 Hct 37.5 % (37.0-47.0) 11/08/22 21:52 MCV 91.7 fl (81-99) 11/08/22 21:52 MCH 31.1 pg (28.0-34.0) 11/08/22 21:52 MCHC 33.9 g/dL (30.0-36.0) 11/08/22 21:52 RDW 11.9 % (12.1-15.1) L 11/08/22 21:52 Plt Count 227 10^3/cmm (130-400) 11/08/22 21:52 MPV 9.9 fL (7.4-10.4) 11/08/22 21:52 Gran % Cancelled 11/08/22 21:07 Neut % (Auto) 76.8 % 11/08/22 21:52 Lymph % (Auto) 14.6 % 11/08/22 21:52 [place] % (Auto) 7.1 % 11/08/22 21:52 Eos % (Auto) 0.8 % 11/08/22 21:52 Baso % (Auto) 0.4 % 11/08/22 21:52 Neut # (Auto) 9.50 10^3/uL (1.8-7.7) H 11/08/22 21:52 Lymph # (Auto) 1.8 10^3/uL (0.8-4.8) 11/08/22 21:52 [place] # (Auto) 0.9 10^3/uL (0.2-0.9) 11/08/22 21:52 Eos # (Auto) 0.1 10^3/uL (0.0-0.8) 11/08/22 21:52 Baso # (Auto) 0.1 10^3/uL (0.0-0.1) 11/08/22 21:52 Absolute Gran (auto) Cancelled 11/08/22 21:07 Nucleated RBC % (auto) 0 % 11/08/22 21:52 Nucleated RBCs # 0.0 /100WBC 11/08/22 21:52 Sodium 139 mmol/L (136-145) 11/08/22 21:52 Potassium 3.8 mmol/L (3.5-5.1) 11/08/22 21:52 Chloride 102 mmol/L (98-107) 11/08/22 21:52 Carbon Dioxide 25 mmol/L (22-29) 11/08/22 21:52 Anion Gap 15.8 (5-19) 11/08/22 21:52 BUN 13 mg/dL (6-20) 11/08/22 21:52 Creatinine 0.6 mg/dL (0.5-0.9) 11/08/22 21:52 GFR Calculation 110.7 mL/min (90-130) 11/08/22 21:52 Glucose 98 mg/dL (65-115) 11/08/22 21:52 Calculated Osmolality 288 mOsm/kg (285-295) 11/08/22 21:52 Calcium 8.9 mg/dL (8.5-10.5) 11/08/22 21:52 Total Bilirubin 0.3 mg/dL (0.15-1.2) 11/08/22 21:52 AST 18 U/L (0-32) 11/08/22 21:52 ALT 18 U/L (0-33) 11/08/22 21:52 Alkaline Phosphatase 65 U/L (35-105) 11/08/22 21:52 Total Protein 7.2 g/dL (6.6-8.7) 11/08/22 21:52 Albumin 4.5 g/dL (3.5-5.2) 11/08/22 21:52 Globulin 2.7 g/dL (1.3-4.6) 11/08/22 21:52 Coronavirus 229E (PCR) Not detected (NOT DETECT) 11/08/22 21:05 Influenza Type A Ag negative (Negative) 11/08/22 21:05 Influenza Type B Ag negative (Negative) 11/08/22 21:05 SARS-CoV-2 (PCR) Not detected (NOT DETECT) 11/08/22 21:05 Group A Strep Rapid Negative (Negative) 11/08/22 21:05 Discharge Plan Discharge Patient Disposition: Home Clinical Impression: Pneumonia Qualifiers: Pneumonia type: due to unspecified organism Laterality: unspecified laterality Lung location: unspecified part of lung Qualified Code(s): J18.9 - Pneumonia, unspecified organism Condition: Stable Prescriptions: New doxycycline hyclate 100 mg capsule 100 mg PO BID 10 Days Qty: 20 0RF No Action cetirizine [Zyrtec] 10 mg tablet 10 mg PO DAILY PRN escitalopram oxalate [Lexapro] 10 mg tablet 10 mg PO DAILY ibuprofen 800 mg tablet 800 mg PO DAILY levocetirizine [Xyzal] 5 mg tablet 5 mg PO DAILY montelukast [Singulair] 10 mg tablet 10 mg PO DAILY atomoxetine [Strattera] 100 mg capsule 100 mg PO BID ondansetron 4 mg tablet,disintegrating 4 mg PO Q8H PRN (Reason: nausea and vomiting) Qty: 14 0RF Discharge Orders: Discharge ED (Routine); Ordered 11/08/22 Ordered By: Carson Dalton Referrals: Olivia Read PA [Primary Care Provider] - Discharge Diet: Regular Discharge Activity: Increase activity as tolerated Patient Instructions: Pneumonia (ED) Activity Restrictions/Additional Instructions: Follow-up with medical provider as directed in the next 5 to 7 days for reevaluation. Take medications as prescribed. Return to the ER or your medical provider if condition worsens. Please read and understand discharge instructions. Chest XRay Report IMPRESSION: Small amount of interstitial infiltrate within the lung bases with mild subsegmental atelectasis suggesting small amount of basilar pneumonia. Coding Level of Care Code ED Engineering Instructor for Ghassan Zuniga
[2022-11-08] MEDS: ketorolac 60 mg/2 mL INJ IM (21:02)
[2022-11-08 21:34] LABS: Rapid Strep A Test Negative (Negative)
[2022-11-08 21:41] LABS: Influenza A by IFA negative (Negative); Influenza B by IFA negative (Negative)
[2022-11-08 21:56] LABS: Basophils # 0.1 10^3/uL (0.0-0.1); Basophils % 0.4 %; Eosinophils # 0.1 10^3/uL (0.0-0.8); Eosinophils % 0.8 %; Hematocrit 37.5 % (37.0-47.0); Hemoglobin 12.7 g/dL (11.5-15.3); Lymphocytes # 1.8 10^3/uL (0.8-4.8); Lymphocytes % 14.6 %; Mean Corpuscular HGB Conc 33.9 g/dL (30.0-36.0); Mean Corpuscular Hemoglobin 31.1 pg (28.0-34.0); Mean Corpuscular Volume 91.7 fl (81-99); Mean Platelet Volume 9.9 fL (7.4-10.4); Monocytes # 0.9 10^3/uL (0.2-0.9); Monocytes % 7.1 %; Neutrophils % 76.8 %; Nucleated Red Blood Cells % 0 %; Platelet Count 227 10^3/cmm (130-400); Red Blood Count 4.09 10^6/uL (4.1-5.3); Red Cell Distribution Width 11.9 % (12.1-15.1); White Blood Count 12.4 10^3/uL (4.0-10.0)
[2022-11-08 22:00] VITALS: BP 121/91; PULSE 90; RESP 14; O2SAT 98
[2022-11-08 22:12] LABS: Alanine Aminotransferase 18 U/L (0-33); Albumin Level 4.5 g/dL (3.5-5.2); Alkaline Phosphatase 65 U/L (35-105); Anion Gap 15.8 (5-19); Aspartate Amino Transferase 18 U/L (0-32); Blood Urea Nitrogen 13 mg/dL (6-20); Calcium 8.9 mg/dL (8.5-10.5); Carbon Dioxide 25 mmol/L (22-29); Chloride 102 mmol/L (98-107); Globulin 2.7 g/dL (1.3-4.6); Glomerular Filtration Rate 110.7 mL/min (90-130); Glucose 98 mg/dL (65-115); Osmolality Calculated 288 mOsm/kg (285-295); Potassium 3.8 mmol/L (3.5-5.1); Sodium 139 mmol/L (136-145); Total Bilirubin 0.3 mg/dL (0.15-1.2); Total Protein 7.2 g/dL (6.6-8.7)
[2022-11-08] MEDS: doxycycline 100 mg Tablet PO (22:24)
[2022-11-08] MEDS: acetaminophen 500 mg Tablet 1000 MG PO (22:28)
[2022-11-08 22:30] VITALS: BP 121/91; PULSE 90; RESP 14; TEMP 36.2; O2SAT 98
[2022-11-08 23:12] LABS: Adenovirus Not Detected (NOT DETECT); Chlamydia Pneumoniae Not Detected (NOT DETECT); Coronavirus 229E,HKU1,NL63,OC4 Not Detected (NOT DETECT); Human Metapneumovirus Not Detected (NOT DETECT); Human Rhinovirus/Enterovirus Not Detected (NOT DETECT); Influenza A Not Detected (NOT DETECT); Influenza A H1 Not Detected (NOT DETECT); Influenza A H1-2009 Not Detected (NOT DETECT); Influenza A H3 Not Detected (NOT DETECT); Influenza B Not Detected (NOT DETECT); Mycoplasma Pneumoniae Not Detected (NOT DETECT); Parainfluenza Virus Type 1 Not Detected (NOT DETECT); Parainfluenza Virus Type 2 Not Detected (NOT DETECT); Parainfluenza Virus Type 3 Not Detected (NOT DETECT); Parainfluenza Virus Type 4 Not Detected (NOT DETECT); Respiratory Syncytial Virus A Not Detected (NOT DETECT); Respiratory Syncytial Virus B Not Detected (NOT DETECT); SARS-COV-2 Not Detected (NOT DETECT)
== END 2022-11-08 22:31 | disposition home or self-care (01) ==
PROVIDERS: Absent Provider Internal Medicine Hematology & Oncology; Emergency Provider Physician Assistant; PCP Physician Assistant
DX: J18.9 Pneumonia, unspecified organism (principal); Z20.822 Contact with and (suspected) exposure to COVID-19; F17.290 Nicotine dependence, other tobacco product, uncomplicated; Z85.820 Personal history of malignant melanoma of skin; Z85.841 Personal history of malignant neoplasm of brain
CPT/HCPCS: 71045; 80053; 85025; 87081; 87635; 87804; 87880; 96372; 99284; J1885

== ENCOUNTER 2022-11-26 14:29 | Emergency (ER) | payer MEDICARE, MEDICAID, SELFPAY ==
[2022-11-26] VITALS (24 sets, daily range): BP systolic 118–142; BP diastolic 72–92; PULSE 70–89; RESP 11–22; TEMP 36.7; O2SAT 93–98; BMI 27.7
--- NOTE | 2022-11-26 15:57 | ED_ITS ---
Documented by User: Pako Baker DO 11/28/22 06:27 HPI - Headache General: Chief Complaint: Headache Stated Complaint: Head Pain Time Seen by Provider: 11/26/22 15:34 Source: patient Mode of arrival: ambulatory History of Present Illness: 42-year-old female with a history of malignant melanoma. Comes in today complaining of a headache. She had a resection of the original malignant melanoma in 2011 with lymph node biopsy which was negative. 2017 she was found to have recurrence with on the left occipital lesion as well as metastatic disease that was suspicious of the liver spleen and a right breast nodule. She had resection of the brain lesion. Continue to monitoring and treatment since then. Patient reports she recently had an MRI at [place] where she is monitored now and there is a concern of a recurrent left occipital lesion they were not sure if it was a new lesion or scarring from previous. MD elicited complaint: headache Pertinent past history: other (Cancer with brain mets) Location: temporal and occipital Severity: moderate Associated symptoms: Deny chest pain, fever(s), malaise, nausea, rash or vomiting Review of Systems Const: Denies: fever(s), chills, body aches, change in appetite, fatigue or malaise ENMT: Denies: throat pain, ear or mastoid pain, nasal discharge or nasal congestion Card: Denies: chest pain, edema, dyspnea on exertion or orthopnea Resp: Denies: dyspnea, productive cough or non-productive cough GI: Denies: abdominal pain, nausea, vomiting, hematemesis, coffee ground emesis, diarrhea, constipation, bloating, hematochezia or melena : Denies: flank pain, difficulty voiding, dysuria, urinary frequency or urinary urgency Skin/Breast: Denies: rash or pruritus Neuro: Reports: headache(s) PFSH ED PFSH: Medical History Anxiety Depression History of colitis History of 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, including hip Psychiatric care Secondary malignant neoplasm of brain Status post gamma knife treatment had 4 different procedures Surgical History History of bilateral tubal ligation 2010 History of History of cryosurgery History of endometrial ablation 2011 Family History Brother Cancer Melanoma Family/Other Cancer Maternal uncle--melanoma Family/Other Cancer Maternal uncle--liver Denies family history of Diabetes CAD (coronary artery disease) Clotting disorder Hyperlipidemia Chronic kidney disease (CKD) Bleeding disorder Hypertension Stroke Social History Smoking and tobacco status: current every day smoker (0.5 ppd) e-cigarettes E- Cigarette Details: vaporizer device Alcohol intake: never Physical Exam Const: GENERAL APPEARANCE: cooperative and comfortable ORIENTATION/CONSCIOUSNESS: Yes awake, Yes oriented to person, Yes oriented to place and Yes oriented to time HENMT: COMMON NORMALS: normocephalic, atraumatic and hearing grossly normal bilaterally HEAD & SCALP: normocephalic and atraumatic Resp: COMMON NORMALS: normal respiratory effort, No retractions, No use of accessory muscles and clear to auscultation bilaterally AUSCULTATION: clear to auscultation bilaterally Cardio: COMMON NORMALS: regular rate, regular rhythm and No murmurs present (Cardio) RATE: regular rate RHYTHM: regular rhythm GI: COMMON NORMALS: Soft to palpation and No hepatosplenomegaly present AUSCULTATION: Yes normoactive bowel sounds PALPATION: Yes Soft to palpation, No Tenderness to palpation present (GI), No Guarding due to palpation present (GI) and Yes No hepatosplenomegaly present Extremity: COMMON NORMALS: normal to inspection, capillary refill normal, no clubbing, cyanosis or edema, no calf tenderness and no pedal edema Neuro: SENSORIUM/ORIENTATION: Yes oriented to person, Yes oriented to place and Yes oriented to time Skin: COMMON NORMALS: no rashes or lesions noted GENERAL SKIN EXAM: no rashes or lesions noted Course Vital Signs: Vital signs: Vital Signs Temperature 98.0 F 11/26/22 14:42 Pulse Rate 80 11/26/22 19:07 Respiratory Rate 14 11/26/22 19:07 Blood Pressure 132/91 11/26/22 19:07 Pulse Oximetry 95 11/26/22 19:07 Oxygen Delivery Me thod Room Air 11/26/22 18:40 MDM - Headache Medical Decision Making Care signed out to Dr. Littlejohn at change of shift. See final notes for diagnosis and disposition. Patient presents here with a headache CT showed no acute findings she has no signs of subarachnoid hemorrhage or meningitis she feels improved here she is stable for discharge she is to follow-up with her oncologist return if worsening she understands agrees to plan. Lab Data 11/26/22 16:45 11/26/22 16:[address] 11/26/22 16:52 IMPRESSION: 1. Complex previous surgical history with left parietal craniotomy and underlying gliosis and encephalomalacia. Based on history, an MRI should be considered to work this up at some point given history. Compared to the 03/05/2022 MRI, today's exam appears similar from that time. 2. No definite hemorrhage or midline shift. Laboratory Results WBC 7.2 10^3/uL (4.0-10.0) 11/26/22 16:45 RBC 4.14 10^6/uL (4.1-5.3) 11/26/22 16:45 Hgb 12.8 g/dL (11.5-15.3) 11/26/22 16:45 Hct 38.0 % (37.0-47.0) 11/26/22 16:45 MCV 91.8 fl (81-99) 11/26/22 16:45 MCH 30.9 pg (28.0-34.0) 11/26/22 16:45 MCHC 33.7 g/dL (30.0-36.0) 11/26/22 16:45 RDW 12.0 % (12.1-15.1) L 11/26/22 16:45 Plt Count 263 10^3/cmm (130-400) 11/26/22 16:45 MPV 10.1 fL (7.4-10.4) 11/26/22 16:45 Neut % (Auto) 58.0 % 11/26/22 16:45 Lymph % (Auto) 32.1 % 11/26/22 16:45 [place] % (Auto) 7.5 % 11/26/22 16:45 Eos % (Auto) 1.7 % 11/26/22 16:45 Baso % (Auto) 0.4 % 11/26/22 16:45 Neut # (Auto) 4.16 10^3/uL (1.8-7.7) 11/26/22 16:45 Lymph # (Auto) 2.3 10^3/uL (0.8-4.8) 11/26/22 16:45 [place] # (Auto) 0.5 10^3/uL (0.2-0.9) 11/26/22 16:45 Eos # (Auto) 0.1 10^3/uL (0.0-0.8) 11/26/22 16:45 Baso # (Auto) 0.0 10^3/uL (0.0-0.1) 11/26/22 16:45 Nucleated RBC % (auto) 0 % 11/26/22 16:45 Nucleated RBCs # 0.0 /100WBC 11/26/22 16:45 Sodium 138 mmol/L (136-145) 11/26/22 16:45 Potassium 3.9 mmol/L (3.5-5.1) 11/26/22 16:45 Chloride 103 mmol/L (98-107) 11/26/22 16:45 Carbon Dioxide 24 mmol/L (22-29) 11/26/22 16:45 Anion Gap 14.9 (5-19) 11/26/22 16:45 BUN 12 mg/dL (6-20) 11/26/22 16:45 Creatinine 0.6 mg/dL (0.5-0.9) 11/26/22 16:45 GFR Calculation 110.7 mL/min (90-130) 11/26/22 16:45 Glucose 89 mg/dL (65-115) 11/26/22 16:45 Calculated Osmolality 285 mOsm/kg (285-295) 11/26/22 16:45 Calcium 9.3 mg/dL (8.5-10.5) 11/26/22 16:45 Discharge Plan Discharge Patient Disposition: Home Clinical Impression: Headache Condition: Stable Prescriptions: No Action ibuprofen 800 mg tablet 800 mg PO TID PRN (Reason: Pain) levocetirizine [Xyzal] 5 mg tablet 5 mg PO BEDTIME montelukast [Singulair] 10 mg tablet 10 mg PO QAM pantoprazole 20 mg tablet,delayed release (DR/EC) 20 mg PO BID nicotine (polacrilex) 4 mg gum 4 mg PO PRN fluticasone propionate 50 mcg/actuation spray,suspension 1 spray INTRANASAL DAILY PRN (Reason: Allergy Symptoms) escitalopram oxalate 20 mg tablet 20 mg PO QAM atomoxetine 40 mg capsule 40 mg PO Q12H Discharge Orders: Discharge ED (Routine); Ordered 11/26/22 Ordered By: Giovana Littlejohn Referrals: Olivia Read PA [Primary Care Provider] - 1-3 days Discharge Diet: Advance as tolerated Discharge Activity: Resume usual activity Patient Instructions: Acute Headache (ED) Coding Level of Care Code ED Operations Management Trainee for Chg Fwd Documented by User: Giovana Littlejohn MD 11/26/22 19:02 HPI - Headache General: Chief Complaint: Headache Stated Complaint: Head Pain Time Seen by Provider: 11/26/22 15:34 PFSH ED PFSH: Medical History Anxiety Depression History of colitis History of 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, including hip Psychiatric care Secondary malignant neoplasm of brain Status post gamma knife treatment had 4 different procedures Surgical History History of bilateral tubal ligation 2009 History of History of cryosurgery History of endometrial ablation 2010 Family History Brother Cancer Melanoma Family/Other Cancer Maternal uncle--melanoma Family/Other Cancer Maternal uncle--liver Denies family history of Diabetes CAD (coronary artery disease) Clotting disorder Hyperlipidemia Chronic kidney disease (CKD) Bleeding disorder Hypertension Stroke Social History Smoking and tobacco status: current every day smoker (0.5 ppd) e-cigarettes E- Cigarette Details: vaporizer device Alcohol intake: never Course Vital Signs: Vital signs: Vital Signs Temperature 98.0 F 11/26/22 14:42 Pulse Rate 80 11/26/22 19:07 Respiratory Rate 14 11/26/22 19:07 Blood Pressure 132/91 11/26/22 19:07 Pulse Oximetry 95 11/26/22 19:07 Oxygen Delivery Me thod Room Air 11/26/22 18:40 MDM - Headache Medical Decision Making Patient presents here with a headache CT showed no acute findings she has no signs of subarachnoid hemorrhage or meningitis she feels improved here she is stable for discharge she is to follow-up with her oncologist return if worsening she understands agrees to plan. Differential Diagnosis Likely headache; Unlikely subarachnoid hemorrhage or meningitis Medical Records I reviewed the patient's medical records. Lab Data 11/26/22 16:45 11/26/22 16:[address] 11/26/22 16:52 IMPRESSION: 1. Complex previous surgical history with left parietal craniotomy and underlying gliosis and encephalomalacia. Based on history, an MRI should be considered to work this up at some point given history. Compared to the 03/05/2022 MRI, today's exam appears similar from that time. 2. No definite hemorrhage or midline shift. Laboratory Results WBC 7.2 10^3/uL (4.0-10.0) 11/26/22 16:45 RBC 4.14 10^6/uL (4.1-5.3) 11/26/22 16:45 Hgb 12.8 g/dL (11.5-15.3) 11/26/22 16:45 Hct 38.0 % (37.0-47.0) 11/26/22 16:45 MCV 91.8 fl (81-99) 11/26/22 16:45 MCH 30.9 pg (28.0-34.0) 11/26/22 16:45 MCHC 33.7 g/dL (30.0-36.0) 11/26/22 16:45 RDW 12.0 % (12.1-15.1) L 11/26/22 16:45 Plt Count 263 10^3/cmm (130-400) 11/26/22 16:45 MPV 10.1 fL (7.4-10.4) 11/26/22 16:45 Neut % (Auto) 58.0 % 11/26/22 16:45 Lymph % (Auto) 32.1 % 11/26/22 16:45 [place] % (Auto) 7.5 % 11/26/22 16:45 Eos % (Auto) 1.7 % 11/26/22 16:45 Baso % (Auto) 0.4 % 11/26/22 16:45 Neut # (Auto) 4.16 10^3/uL (1.8-7.7) 11/26/22 16:45 Lymph # (Auto) 2.3 10^3/uL (0.8-4.8) 11/26/22 16:45 [place] # (Auto) 0.5 10^3/uL (0.2-0.9) 11/26/22 16:45 Eos # (Auto) 0.1 10^3/uL (0.0-0.8) 11/26/22 16:45 Baso # (Auto) 0.0 10^3/uL (0.0-0.1) 11/26/22 16:45 Nucleated RBC % (auto) 0 % 11/26/22 16:45 Nucleated RBCs # 0.0 /100WBC 11/26/22 16:45 Sodium 138 mmol/L (136-145) 11/26/22 16:45 Potassium 3.9 mmol/L (3.5-5.1) 11/26/22 16:45 Chloride 103 mmol/L (98-107) 11/26/22 16:45 Carbon Dioxide 24 mmol/L (22-29) 11/26/22 16:45 Anion Gap 14.9 (5-19) 11/26/22 16:45 BUN 12 mg/dL (6-20) 11/26/22 16:45 Creatinine 0.6 mg/dL (0.5-0.9) 11/26/22 16:45 GFR Calculation 110.7 mL/min (90-130) 11/26/22 16:45 Glucose 89 mg/dL (65-115) 11/26/22 16:45 Calculated Osmolality 285 mOsm/kg (285-295) 11/26/22 16:45 Calcium 9.3 mg/dL (8.5-10.5) 11/26/22 16:45 Discharge Plan Discharge Patient Disposition: Home Clinical Impression: Headache Condition: Stable Prescriptions: No Action ibuprofen 800 mg tablet 800 mg PO TID PRN (Reason: Pain) levocetirizine [Xyzal] 5 mg tablet 5 mg PO BEDTIME montelukast [Singulair] 10 mg tablet 10 mg PO QAM pantoprazole 20 mg tablet,delayed release (DR/EC) 20 mg PO BID nicotine (polacrilex) 4 mg gum 4 mg PO PRN fluticasone propionate 50 mcg/actuation spray,suspension 1 spray INTRANASAL DAILY PRN (Reason: Allergy Symptoms) escitalopram oxalate 20 mg tablet 20 mg PO QAM atomoxetine 40 mg capsule 40 mg PO Q12H Discharge Orders: Discharge ED (Routine); Ordered 11/26/22 Ordered By: Giovana Littlejohn Referrals: Olivia Read PA [Primary Care Provider] - 1-3 days Discharge Diet: Advance as tolerated Discharge Activity: Resume usual activity Patient Instructions: Acute Headache (ED) Coding Level of Care Code ED Operations Management Trainee for Ghassan Zuniga
--- NOTE | 2022-11-26 16:52 | CTR_ITS ---
PROCEDURE INFORMATION: Exam: CT Head Without Contrast Exam date and time: 11/26/2022 6:18 PM Age: 42 years old Clinical indication: Pain; Headache; Prior surgery; Surgery date: 6+ months; Surgery type: Brain tumor 2017; Additional info: History of malignant melanoma with brain mets, new headache TECHNIQUE: Imaging protocol: Computed tomography of the head without contrast. Radiation optimization: All CT scans at this facility use at least one of these dose optimization techniques: automated exposure control; mA and/or kV adjustment per patient size (includes targeted exams where dose is matched to clinical indication); or iterative reconstruction. REPORTING DATA: Count of CT and Cardiac NM exams in prior 12 months: This patient has received 2 known CTs and 0 known cardiac nuclear medicine studies in the 12 months prior to the current study. COMPARISON: MR head wo/w con [id number] 03/05/2022 1:00 PM RADIATION DOSE METRICS: Total DLP (mGy-cm): 1287 FINDINGS: Brain: No definite hemorrhage or midline shift. Unchanged equivocal left cerebellar lesion, better seen on prior MRI brain. Cerebral ventricles: No ventriculomegaly or evidence of acute hydrocephalus. Paranasal sinuses: The partially assessed sinuses are grossly clear. Mastoid air cells: Visualized mastoid air cells are well aerated. Bones/joints: Left parietal craniotomy postop changes with underlying encephalomalacia and gliosis. No definite hemorrhage. No midline shift. Soft tissues: Unremarkable. CT/CT head wo con* [id number] IMPRESSION: 1. Complex previous surgical history with left parietal craniotomy and underlying gliosis and encephalomalacia. Based on history, an MRI should be considered to work this up at some point given history. Compared to the 03/05/2022 MRI, today's exam appears similar from that time. 2. No definite hemorrhage or midline shift.
[2022-11-26] MEDS: sodium chloride 0.9% 1,000 ML 999 ML IV ×2 (16:54→17:55)
[2022-11-26] MEDS: promethazine 25 mg/mL SDV 1 mL IM (16:56)
[2022-11-26] MEDS: dexamethasone 10 mg/mL INJ IVP (16:56)
[2022-11-26 16:57] LABS: Basophils % 0.4 %; Eosinophils # 0.1 10^3/uL (0.0-0.8); Eosinophils % 1.7 %; Hemoglobin 12.8 g/dL (11.5-15.3); Lymphocytes # 2.3 10^3/uL (0.8-4.8); Lymphocytes % 32.1 %; Mean Corpuscular HGB Conc 33.7 g/dL (30.0-36.0); Mean Corpuscular Hemoglobin 30.9 pg (28.0-34.0); Mean Corpuscular Volume 91.8 fl (81-99); Mean Platelet Volume 10.1 fL (7.4-10.4); Monocytes # 0.5 10^3/uL (0.2-0.9); Monocytes % 7.5 %; Neutrophils # 4.16 10^3/uL (1.8-7.7); Nucleated Red Blood Cells % 0 %; Platelet Count 263 10^3/cmm (130-400); Red Blood Count 4.14 10^6/uL (4.1-5.3); White Blood Count 7.2 10^3/uL (4.0-10.0)
[2022-11-26 17:13] LABS: Anion Gap 14.9 (5-19); Blood Urea Nitrogen 12 mg/dL (6-20); Calcium 9.3 mg/dL (8.5-10.5); Carbon Dioxide 24 mmol/L (22-29); Chloride 103 mmol/L (98-107); Glomerular Filtration Rate 110.7 mL/min (90-130); Glucose 89 mg/dL (65-115); Osmolality Calculated 285 mOsm/kg (285-295); Potassium 3.9 mmol/L (3.5-5.1); Sodium 138 mmol/L (136-145)
[2022-11-26] MEDS: morphine 4 mg/mL SDV 1 mL IVP (17:19)
== END 2022-11-26 19:09 | disposition home or self-care (01) ==
PROVIDERS: Family Medicine; Emergency Provider Emergency Medicine; PCP Physician Assistant
DX: R51.9 Headache, unspecified (principal); F17.290 Nicotine dependence, other tobacco product, uncomplicated; Z85.841 Personal history of malignant neoplasm of brain
CPT/HCPCS: 70450; 80048; 85025; 96361; 96372; 96374; 96375; 99285; J1100; J2270; J2550; J7030

== ENCOUNTER 2023-01-30 14:42 | Oncology outpatient (recurring) (ONCR) | payer OTHER, MEDICAID, SELFPAY ==
[2023-01-30 15:30] VITALS: BP 153/90; PULSE 118; RESP 18; TEMP 36.8; O2SAT 96
== END 2023-02-24 23:59 | disposition home or self-care (01) ==
PROVIDERS: PCP Physician Assistant; Visit Provider Internal Medicine Hematology & Oncology
DX: C43.72 Malignant melanoma of left lower limb, including hip; C79.31 Secondary malignant neoplasm of brain
CPT/HCPCS: 36415; 70553; A9577

== ENCOUNTER 2023-01-30 14:44 | Outpatient (CLI) | payer OTHER, MEDICAID, SELFPAY ==
--- NOTE | 2023-01-30 14:13 | MR_ITS ---
WS: [id number] MRI BRAIN WITH AND WITHOUT CONTRAST HISTORY: MELANOMA METASTATIC TO BRAIN COMPARISON: 03/05/2022, 08/27/2021 TECHNIQUE: Multiplanar imaging performed through the brain with MultiHance 20 ml's IV. Stable postoperative LEFT occipital craniotomy. There is new nodular and serpiginous enhancement at t he resection cavity. The new nodular enhancement along the anterior cavity extending towards the occi pital horn of the lateral ventricle. The remaining serpiginous changes have been present for several years without progression. There is also hemosiderin at the resection site. There is surrounding glio sis which is similar otherwise. No residual LEFT cerebellar enhancement. 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 No hydrocephalus. No midline shift. Paranasal sinuses: Well aerated with no significant disease. Mastoid air cells: Normal. Calvarium and scalp: Normal. MR/MR head wo/w con [id number] IMPRESSION: 1. Very subtle increase in the serpiginous enhancement along the anterior LEFT occipital resection site. Patient should be evaluated for possible recurrence of metastatic disease. This is a very subtle finding visualized along the anter ior resection cavity. 2. Otherwise stable appearance of the LEFT occipital craniotomy. 3. Complete resolution LEFT cerebellar metastatic site.
[2023-01-30] MEDS: gadobenate dimeglumine 20 mL vial IV (15:59)
== END 2023-01-30 14:45 | disposition home or self-care (01) ==
LOC: RAD 14:44
PROVIDERS: PCP Physician Assistant
DX: C79.31 Secondary malignant neoplasm of brain (principal); C43.9 Malignant melanoma of skin, unspecified; Z98.890 Other specified postprocedural states
CPT/HCPCS: 70553; A9577

== ENCOUNTER → 2023-05-17 15:36 | Outpatient (BNVA) | payer MEDICARE, MEDICAID, SELFPAY | PROVIDERS: PCP Physician Assistant; Visit Provider Emergency Medicine | DX: R51.9 Headache, unspecified (principal); U07.1 COVID-19 | CPT/HCPCS: 87426 ==

== ENCOUNTER 2023-10-20 18:03 | Emergency (ER) | payer MEDICARE, MEDICAID, SELFPAY ==
[2023-10-20 18:07] VITALS: BP 121/88; PULSE 96; TEMP 36.7; O2SAT 97; BMI 33.9
--- NOTE | 2023-10-20 18:17 | XRR_ITS ---
PROCEDURE INFORMATION: Exam: XR Chest Exam date and time: 10/20/2023 6:21 PM Age: 43 years old Clinical indication: Shortness of breath; Prior surgery; Surgery date: 6+ months; Surgery type: Port; Additional info: SOB TECHNIQUE: Imaging protocol: Radiologic exam of the chest. Views: 1 view. COMPARISON: CR (CHEST, ) 11/08/2022 7:56 PM FINDINGS: Lungs: No focal consolidation. Pleural spaces: No evidence of pneumothorax. No evidence of pleural effusion. Heart/Mediastinum: Cardiomediastinal silhouette is within normal limits. Right IJ MediPort with tip terminating at the cavoatrial junction. Bones/joints: No evidence of acute osseous abnormality. XR/XR chest 1V portable [id number] IMPRESSION: 1. No acute cardiopulmonary abnormality.
--- NOTE | 2023-10-20 18:19 | ED_ITS ---
HPI - Nausea/Vomiting/Diarrhea 2 General: Chief complaint: Nausea/Vomiting/Diarrhea Stated complaint: n/v body aches Time Seen by Provider: 10/20/23 18:14 Source: patient Mode of arrival: ambulatory Limitations: no limitations History of Present Illness: 43-year-old female states that over the last day she has been having bodyaches along with chills states she is had vomiting states she has not been able to tolerate any p.o. all day long. She denies any fever she denies any chest pain. States that her mom did have flu a couple weeks ago. Denies any diarrhea Associated nausea: Yes Associated symtoms: Reports nausea; Denies chest pain, dysuria or headache(s) Review of Systems 2 Const: Reports: chills and body aches; Denies: fever(s) or change in appetite ENMT: Denies: throat pain or dental pain Card: Denies: chest pain Resp: Denies: dyspnea GI: Reports: nausea and vomiting; Denies: abdominal pain or diarrhea : Denies: dysuria Musc: Denies: neck pain or back pain Skin/Breast: Denies: rash Neuro: Denies: headache(s) PFSH ED 2 PFSH: Medical History Psychiatric care 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, including hip Depression Anxiety History of 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 Status post gamma knife treatment had 4 different procedures History of colitis Surgical History History of endometrial ablation 2010 History of bilateral tubal ligation 2009 History of History of cryosurgery Family History Brother Cancer Melanoma Family/Other Cancer Maternal uncle--melanoma Family/Other Cancer Maternal uncle--liver Denies family history of Diabetes CAD (coronary artery disease) Clotting disorder Hyperlipidemia Chronic kidney disease (CKD) Bleeding disorder Hypertension Stroke Social History Smoking and tobacco/nicotine status: current every day tobacco/nicotine user (0.5 ppd) e-cigarettes E-Cigarette Details: vaporizer device Alcohol intake: former 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 date alcohol: 2022 Substance/Drug Use: former Date of last use: 2022 Physical Exam 2 Const: COMMON NORMALS: no acute distress, patient oriented x3 and healthy appearing HENMT: COMMON NORMALS: normocephalic and atraumatic HEAD & SCALP: n ormocephalic and atraumatic Neck/C-Spine: COMMON NORMALS: full ROM and supple Chest: COMMONS NORMALS: normal inspection of the chest Resp: COMMON NORMALS: normal respiratory effort, No retractions, No use of accessory muscles and clear to auscultation bilaterally AUSCULTATION: clear to auscultation bilaterally Cardio: COMMON NORMALS: regular rate, regular rhythm and No murmurs present (Cardio) RATE: regular rate RHYTHM: regular rhythm GI: COMMON NORMALS: Normal to inspection, nondistended, normoactive bowel sounds present, Soft to palpation, non-tender and no masses PALPATION: Yes Soft to palpation Extremity: COMMON NORMALS: normal to inspection and full ROM Neuro: COMMON NORMALS: patient oriented x3, moves all extremities and no focal motor deficits Psych: COMMON NORMALS: mental status grossly normal, Normal thought process present and cooperative THOUGHT PROCESS: Normal thought process present Skin: COMMON NORMALS: no rashes or lesions noted and no wounds GENERAL SKIN EXAM: no rashes or lesions noted Course 2 Vital Signs: Vital signs: Vital Signs Temperature 98.1 F 10/20/23 18:07 Pulse Rate 83 10/20/23 19:10 Blood Pressure 119/79 10/20/23 19:10 Pulse Oximetry 95 10/20/23 19:10 Oxygen Delivery Me thod Room Air 10/20/23 19:10 MDM - Nausea/Vomiting/Diarrhea Medical Decision Making Patient presents here with vomiting she feels much improved here after fluids and nausea medicine her blood work here is normal abdominal exam is benign she is stable for discharge we will prescribe her Zofran for home she is to follow- up with PCP and return if worsening. Medical Records I reviewed the patient's medical records. Lab Data I reviewed the patient's lab results. 10/20/23 18:37 10/20/23 18:37 Radiology Impressions Chest X-Ray 10/20/23 18:17 IMPRESSION: 1. No acute cardiopulmonary abnormality. Laboratory Results WBC 11.07 10^3/uL (3.29-11.43) 10/20/23 18:37 RBC 4.63 10^6/uL (3.85-5.65) 10/20/23 18:37 Hgb 14.00 g/dL (11.27-16.99) 10/20/23 18:37 Hct 41.4 % (36-47) 10/20/23 18:37 MCV 89.4 fl (85-98) 10/20/23 18:37 MCH 30.2 pg (27-33) 10/20/23 18:37 MCHC 33.8 g/dL (30-55) 10/20/23 18:37 RDW 12.1 % (12.1-15.1) 10/20/23 18:37 Plt Count 278 10^3/cmm (157-399) 10/20/23 18: MPV 9.7 fL (7.4-10.4) 10/20/23 18:37 Neut % (Auto) 77.5 % 10/20/23 18:37 Lymph % (Auto) 14.1 % 10/20/23 18:37 [place] % (Auto) 7.0 % 10/20/23 18:37 Eos % (Auto) 0.8 % 10/20/23 18:37 Baso % (Auto) 0.4 % 10/20/23 18:37 Neut # (Auto) 8.58 10^3/uL (1.8-7.7) H 10/20/23 18:37 Lymph # (Auto) 1.6 10^3/uL (0.8-4.8) 10/20/23 18:37 [place] # (Auto) 0.8 10^3/uL (0.2-0.9) 10/20/23 18:37 Eos # (Auto) 0.1 10^3/uL (0.0-0.8) 10/20/23 18:37 Baso # (Auto) 0.0 10^3/uL (0.0-0.1) 10/20/23 18: Nucleated RBC % (auto) 0 % 10/20/23 18: Nucleated RBCs # 0.0 /100WBC 10/20/23 18:37 Sodium 138 mmol/L (136-145) 10/20/23 18:37 Potassium 3.3 mmol/L (3.5-5.1) L 10/20/23 18:37 Chloride 102 mmol/L (98-107) 10/20/23 18:37 Carbon Dioxide 23 mmol/L (22-29) 10/20/23 18:37 Anion Gap 16.3 (5-19) 10/20/23 18:37 BUN 16 mg/dL (6-20) 10/20/23 18:37 Creatinine 0.7 mg/dL (0.5-0.9) 10/20/23 18:37 GFR Calculation 92.2 mL/min (90-130) 10/20/23 18:37 Glucose 109 mg/dL (65-115) 10/20/23 18:37 Calculated Osmolality 288 mOsm/kg (285-295) 10/20/23 18:37 Calcium 9.1 mg/dL (8.5-10.5) 10/20/23 18:37 Total Bilirubin 0.5 mg/dL (0.15-1.2) 10/20/23 18:37 AST 19 U/L (0-32) 10/20/23 18:37 ALT 21 U/L (0-33) 10/20/23 18:37 Alkaline Phosphatase 84 U/L (35-105) 10/20/23 18:37 Total Protein 7.1 g/dL (6.6-8.7) 10/20/23 18:37 Albumin 4.4 g/dL (3.5-5.2) 10/20/23 18:37 Globulin 2.7 g/dL (1.3-4.6) 10/20/23 18:37 Lipase 16 U/L (13-60) 10/20/23 18:37 HCG, Qual Negative (Negative) 10/20/23 18:37 Influenza Type A Ag Negative (Negative) 10/20/23 18:33 Influenza Type B Ag Negative (Negative) 10/20/23 18:33 All radiology interpretation(s) finalized by discharge Discharge Plan Discharge Patient Disposition: Home Clinical Impression: Vomiting Condition: Stable Prescriptions: New ondansetron 4 mg tablet,disintegrating 4 mg PO Q6H PRN (Reason: nausea and vomiting) Qty: 14 0RF No Action ibuprofen 800 mg tablet 800 mg PO TID PRN (Reason: Pain) levocetirizine [Xyzal] 5 mg tablet 5 mg PO BEDTIME montelukast [Singulair] 10 mg tablet 10 mg PO QAM escitalopram oxalate 20 mg tablet 20 mg PO QAM Qty: 30 1RF Rx Instructions: Take one tablet by mouth every morning atomoxetine 100 mg capsule 100 mg PO QAM Qty: 30 1RF Rx Instructions: Take one capsule by mouth every morning; stop 40 mg dose nicotine 14 mg/24 hr patch 24 hour 1 patch transdermal .q am Qty: 28 1RF Rx Instructions: Apply one patch every morning to dry skin; remove at bedtime albuterol sulfate 90 mcg/actuation HFA aerosol inhaler 2 inh inhalation Q4H PRN (Reason: shortness of breath or wheezing) Qty: 6.7 0RF pantoprazole 20 mg tablet,delayed release (DR/EC) 20 mg PO BID fluticasone propionate 50 mcg/actuation spray,suspension 1 spray INTRANASAL DAILY PRN (Reason: Allergy Symptoms) Discharge Orders: Discharge ED (Routine); Ordered 10/20/23 Ordered By: Giovana Littlejohn Referrals: Olivia Read PA [Primary Care Provider] - 1-3 days Discharge Diet: Advance as tolerated Discharge Activity: Resume usual activity Patient Instructions: Acute Nausea and Vomiting (ED) Coding Level of Care Code ED Plug Overwrap Machine Tender for Ghassan Zuniga
--- NOTE | 2023-10-20 18:35 | PC.NURSE ---
Accessed mediport, flushed without difficulty but would not draw blood.
[2023-10-20] MEDS: sodium chloride 0.9% 1,000 ML 999 ML IV (18:41)
[2023-10-20] MEDS: morphine 4 mg/mL SDV 1 mL IVP (18:42)
[2023-10-20] MEDS: diphenhydrAMINE 50 mg/mL SDV 1mL IVP (18:42)
[2023-10-20] MEDS: metoclopramide 5 mg/mL SDV 2 mL 10 MG IVP (18:42)
[2023-10-20 18:53] LABS: Basophils % 0.4 %; Eosinophils # 0.1 10^3/uL (0.0-0.8); Eosinophils % 0.8 %; Hematocrit 41.4 % (36-47); Lymphocytes # 1.6 10^3/uL (0.8-4.8); Lymphocytes % 14.1 %; Mean Corpuscular HGB Conc 33.8 g/dL (30-55); Mean Corpuscular Hemoglobin 30.2 pg (27-33); Mean Corpuscular Volume 89.4 fl (85-98); Mean Platelet Volume 9.7 fL (7.4-10.4); Monocytes # 0.8 10^3/uL (0.2-0.9); Neutrophils # 8.58 10^3/uL (1.8-7.7); Neutrophils % 77.5 %; Nucleated Red Blood Cells % 0 %; Platelet Count 278 10^3/cmm (157-399); Red Blood Count 4.63 10^6/uL (3.85-5.65); Red Cell Distribution Width 12.1 % (12.1-15.1); White Blood Count 11.07 10^3/uL (3.29-11.43)
[2023-10-20 19:02] LABS: HCG, Serum Qual Negative (Negative)
[2023-10-20 19:09] LABS: Alanine Aminotransferase 21 U/L (0-33); Albumin Level 4.4 g/dL (3.5-5.2); Alkaline Phosphatase 84 U/L (35-105); Anion Gap 16.3 (5-19); Aspartate Amino Transferase 19 U/L (0-32); Blood Urea Nitrogen 16 mg/dL (6-20); Calcium 9.1 mg/dL (8.5-10.5); Carbon Dioxide 23 mmol/L (22-29); Chloride 102 mmol/L (98-107); Globulin 2.7 g/dL (1.3-4.6); Glomerular Filtration Rate 92.2 mL/min (90-130); Glucose 109 mg/dL (65-115); Lipase 16 U/L (13-60); Osmolality Calculated 288 mOsm/kg (285-295); Potassium 3.3 mmol/L (3.5-5.1); Sodium 138 mmol/L (136-145); Total Bilirubin 0.5 mg/dL (0.15-1.2); Total Protein 7.1 g/dL (6.6-8.7)
[2023-10-20 19:10] VITALS: BP 119/79; PULSE 83; O2SAT 95
[2023-10-20 19:20] LABS: Influenza A by IFA Negative (Negative); Influenza B by IFA Negative (Negative)
[2023-10-20 19:42] VITALS: BP 143/92; PULSE 85; O2SAT 95
[2023-10-20] MEDS: ondansetron 4 MG Tablet PO (19:45)
== END 2023-10-20 19:45 | disposition home or self-care (01) ==
PROVIDERS: Emergency Provider Emergency Medicine; PCP Physician Assistant
DX: R11.11 Vomiting without nausea (principal); F17.290 Nicotine dependence, other tobacco product, uncomplicated; F17.210 Nicotine dependence, cigarettes, uncomplicated
CPT/HCPCS: 36415; 71045; 80053; 83690; 84703; 85025; 87804; 96361; 96374; 96375; 99284; J1200; J2270; J2765; J7030; Q0162

== ENCOUNTER 2023-11-27 10:18 | Oncology outpatient (recurring) (ONCR) | payer MEDICARE, MEDICAID, SELFPAY ==
[2023-11-27] MEDS: alteplase 1 mg/mL SDV 2 mL 2 MG INTRACATH (10:54)
--- NOTE | 2023-11-27 11:50 | PC.NURSE ---
Port Maintenance Patient scheduled today for port flush. Patient stated she has not been receiving monthly port flushes. Port was accessed at 1030. Port did not have blood return. Patient was instructed to cough, raise arm, and repositioned without successful blood return from port. Patient agreed to Cathflo to attempt restoring blood return in port. Attempt to aspirate for blood return was made 1 hour following Cathflo administration. Patient refused second dose of Cathflo and requested to attempt restoring blood return at next port flush in 1 month. Patient port deaccessed, flushed with 2 saline flushes, and 1 heparin flush.
== END 2023-12-26 23:59 | disposition home or self-care (01) ==
PROVIDERS: PCP Physician Assistant; Visit Provider Internal Medicine Medical Oncology
DX: Z45.2 Encounter for adjustment and management of vascular access device (principal)
CPT/HCPCS: 36593; 96523; J2997

== ENCOUNTER 2023-12-13 14:52 | Emergency (ER) | payer MEDICARE, MEDICAID, SELFPAY ==
[2023-12-13 14:56] VITALS: BP 121/76; PULSE 119; RESP 16; TEMP 36.8; O2SAT 94; BMI 33.2
--- NOTE | 2023-12-13 17:19 | XRR_ITS ---
PROCEDURE INFORMATION: Exam: XR Chest Exam date and time: 12/13/2023 6:01 PM Age: 43 years old Clinical indication: Cough and dyspnea; Prior surgery; Surgery date: 6+ months; Surgery type: Chest port; Patient HX: Cough with dyspnea. History of metastatic melanoma. ; Additional info: Dyspnea/cough TECHNIQUE: Imaging protocol: Radiologic exam of the chest. Views: 1 view. COMPARISON: CR XR chest 1V portable [id number] 10/20/2023 6:21 PM FINDINGS: Tubes, catheters and devices: Right-sided Port-A-Cath. Lungs: Subtle interstitial markings in the right lung base are nonspecific but can be seen the setting of bronchitis, pulmonary vascular congestion, viral infection and small-vessel airways disease. Pleural spaces: Unremarkable. No pleural effusion. No pneumothorax. Heart/Mediastinum: Unremarkable. No cardiomegaly. Bones/joints: Unremarkable. XR/XR chest 1V portable [id number] IMPRESSION: Subtle interstitial markings in the right lung base are nonspecific but can be seen the setting of bronchitis, pulmonary vascular congestion, viral infection and small-vessel airways disease.
--- NOTE | 2023-12-13 17:23 | ED_ITS ---
Documented by User: Pako Baker DO 12/14/23 16:04 HPI - Neck Pain/Injury 2 General: Chief Complaint: Neck Pain/Injury Stated Complaint: pain w/port Time Seen by Provider: 12/13/23 17:11 Source: patient Mode of arrival: ambulatory History of Present Illness: 43-year-old female presents emergency ro om complaining of right-sided neck pain radiating up into her ear. She is also had some pain in the back of her throat. It has been going on most of the week few days ago she was seen by a chiropractor had adjustment done in the neck and the neck pain seem to worsen. She was also concerned about her port being part of the problem. She previously had cancer several years ago had a port placed that still in place has not been removed she has had issues with a drawing blood and they recently tried to flush it were unable to get it open. Otherwise no other issues with support no trauma. She has no pain radiating into her arm. No headache issues. 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, including hip Depression Anxiety History of 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 Status post gamma knife treatment had 4 different procedures History of colitis Surgical History History of endometrial ablation 2010 History of bilateral tubal ligation 2009 History of History of cryosurgery Family History Brother Cancer Melanoma Family/Other Cancer Maternal uncle--melanoma Family/Other Cancer Maternal uncle--liver Denies family history of Diabetes CAD (coronary artery disease) Clotting disorder Hyperlipidemia Chronic kidney disease (CKD) Bleeding disorder Hypertension Stroke Social History Smoking and tobacco/nicotine status: current every day tobacco/nicotine user (0.5 ppd) e-cigarettes E-Cigarette Details: vaporizer device Alcohol intake: former 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 date alcohol: 2022 Substance/Drug Use: former Date of last use: 2022 Physical Exam 2 Const: COMMON NORMALS: no acute distress GENERAL APPEARANCE: cooperative and comfortable ORIENTATION/CONSCIOUSNESS: Yes awake, Yes oriented to person, Yes oriented to place and Yes oriented to time HENMT: COMMON NORMALS: normocephalic, atraumatic and hearing grossly normal bilaterally HEAD & SCALP: normocephalic and atraumatic Resp: COMMON NORMALS: normal respiratory effort, No retractions, No use of accessory muscles and clear to auscultation bilaterally AUSCULTATION: clear to auscultation bilaterally Cardio: COMMON NORMALS: regular rate, regular rhythm and No murmurs present (Cardio) RATE: regular rate RHYTHM: regular rhythm GI: COMMON NORMALS: Soft to palpation and No hepatosplenomegaly present A USCULTATION: Yes normoactive bowel sounds PALPATION: Yes Soft to palpation, No Tenderness to palpation present (GI), No Guarding due to palpation present (GI) and Yes No hepatosplenomegaly present Extremity: COMMON NORMALS: normal to inspection, capillary refill normal, no clubbing, cyanosis or edema, no calf tenderness and no pedal edema Neuro: SENSORIUM/ORIENTATION: Yes oriented to person, Yes oriented to place and Yes oriented to time Skin: COMMON NORMALS: no rashes or lesions noted GENERAL SKIN EXAM: no rashes or lesions noted Course 2 Vital Signs: Vital signs: Vital Signs Temperature 98.3 F 12/13/23 14:56 Pulse Rate 79 12/13/23 19:37 Respiratory Rate 16 12/13/23 19:37 Blood Pressure 137/74 12/13/23 19:37 Pulse Oximetry 92 12/13/23 19:37 Oxygen Delivery Me thod Room Air 12/13/23 18:50 MDM - Neck Pain/Injury Medical Decision Making Care signed out to Dr. De Leon at change of shift. See final notes for diagnosis and disposition. 43-year-old female previously seen by Dr. Baker. Pain is improved currently. She has a chest x-ray that shows interstitial markings in the right lung base, and appropriate position of report. CBC is normal. BMP is not remarkable. Cervical spine CT is not remarkable. She is feeling improved. Her rapid strep is negative. She is still having some throat soreness when she swallows. She may have an acute viral syndrome. Her heart rates better after fluid. She will be allowed discharge. Close outpatient follow-up. Lab Data 12/13/23 18:33 12/13/23 18:33 Radiology Impressions Chest X-Ray 12/13/23 17:19 IMPRESSION: Subtle interstitial markings in the right lung base are nonspecific but can be seen the setting of bronchitis, pulmonary vascular congestion, viral infection and small-vessel airways disease. Cervical Spine CT 12/13/23 17:35 IMPRESSION: No acute findings. Laboratory Results WBC 7.05 10^3/uL (3.29-11.43) 12/13/23 18: RBC 4.02 10^6/uL (3.85-5.65) 12/13/23 18: Hgb 12.40 g/dL (11.27-16.99) 12/13/23 18: Hct 36.7 % (36-47) 12/13/23 18: MCV 91.3 fl (85-98) 12/13/23 18: MCH 30.8 pg (27-33) 12/13/23 18: MCHC 33.8 g/dL (30-55) 12/13/23 18: RDW 12.4 % (12.1-15.1) 12/13/23 18: Plt Count 281 10^3/cmm (157-399) 12/13/23 18: MPV 10.4 fL (7.4-10.4) 12/13/23 18: Neut % (Auto) 58.3 % 12/13/23 18: Lymph % (Auto) 31.6 % 12/13/23 18: Dickens % (Auto) 7.4 % 12/13/23 18: Eos % (Auto) 1.8 % 12/13/23 18: Baso % (Auto) 0.6 % 12/13/23 18: Neut # (Auto) 4.11 10^3/uL (1.8-7.7) 12/13/23 18:33 Lymph # (Auto) 2.2 10^3/uL (0.8-4.8) 12/13/23 18:33 Dickens # (Auto) 0.5 10^3/uL (0.2-0.9) 12/13/23 18: Eos # (Auto) 0.1 10^3/uL (0.0-0.8) 12/13/23 18: Baso # (Auto) 0.0 10^3/uL (0.0-0.1) 12/13/23 18: Nucleated RBC % (auto) 0 % 12/13/23 18: Nucleated RBCs # 0.0 /100WBC 12/13/23 18: Sodium 138 mmol/L (136-145) 12/13/23 18: Potassium 3.8 mmol/L (3.5-5.1) 12/13/23 18: Chloride 105 mmol/L (98-107) 12/13/23: Carbon Dioxide 24 mmol/L (22-29) 12/13/23 18: Anion Gap 12.8 (5-19) 12/13/23 18: BUN 20 mg/dL (6-20) 12/13/23 18: Creatinine 0.8 mg/dL (0.5-0.9) 12/13/23 18: GFR Calculation 79.0 mL/min (90-130) L 12/13/23 18: Glucose 140 mg/dL (65-115) H 12/13/23 18: Calculated Osmolality 291 mOsm/kg (285-295) 12/13/23: Calcium 8.2 mg/dL (8.5-10.5) L 12/13/23 18: Total Bilirubin 0.2 mg/dL (0.15-1.2) 12/13/23 18: AST 17 U/L (0-32) 12/13/23 18: ALT 20 U/L (0-33) 12/13/23 18: Alkaline Phosphatase 82 U/L (35-105) 12/13/23 18: Total Protein 6.9 g/dL (6.6-8.7) 12/13/23 18: Albumin 4.0 g/dL (3.5-5.2) 12/13/23 18:33 Globulin 2.9 g/dL (1.3-4.6) 12/13/23 18:33 Group A Strep Rapid Negative (Negative) 12/13/23 19:09 Discharge Plan Discharge Patient Disposition: Home Clinical Impression: Occipital neuralgia of right side Condition: Stable Prescriptions: No Action ibuprofen 800 mg tablet 800 mg PO TID PRN (Reason: Pain) levocetirizine [Xyzal] 5 mg tablet 5 mg PO BEDTIME montelukast [Singulair] 10 mg tablet 10 mg PO QAM nicotine 14 mg/24 hr patch 24 hour 1 patch transdermal .q am Qty: 28 1RF Rx Instructions: Apply one patch every morning to dry skin; remove at bedtime atomoxetine 40 mg capsule 40 mg PO QAM Qty: 7 0RF Rx Instructions: After 80 mg dose for 1 week, take 40 mg once daily for 1 week, then stop albuterol sulfate 90 mcg/actuation HFA aerosol inhaler 2 inh inhalation Q4H PRN (Reason: shortness of breath or wheezing) Qty: 6.7 0RF pantoprazole 20 mg tablet,delayed release (DR/EC) 20 mg PO BID fluticasone propionate 50 mcg/actuation spray,suspension 1 spray INTRANASAL DAILY PRN (Reason: Allergy Symptoms) ondansetron 4 mg tablet,disintegrating 4 mg PO Q6H PRN (Reason: nausea and vomiting) Qty: 14 0RF Discharge Orders: Discharge ED (Routine); Ordered 12/13/23 Ordered By: Gordon De Leon Referrals: Olivia Read PA [Primary Care Provider] - 1-3 days Patient Instructions: Opioid Safety, Pain Management Activity Restrictions/Additional Instructions: Return for return of pain, fever, worsening symptoms including dizziness, weakness, etc. Follow-up with your doctor next week. 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, including hip Depression Anxiety History of 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 Status post gamma knife treatment had 4 different procedures History of colitis Surgical History History of endometrial ablation 2010 History of bilateral tubal ligation 2009 History of History of cryosurgery Family History Brother Cancer Melanoma Family/Other Cancer Maternal uncle--melanoma Family/Other Cancer Maternal uncle--liver Denies family history of Diabetes CAD (coronary artery disease) Clotting disorder Hyperlipidemia Chronic kidney disease (CKD) Bleeding disorder Hypertension Stroke Social History Smoking and tobacco/nicotine status: current every day tobacco/nicotine user (0.5 ppd) e-cigarettes E-Cigarette Details: vaporizer device Alcohol intake: former 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 date alcohol: 2022 Substance/Drug Use: former Date of last use: 2022 Course 2 Vital Signs: Vital signs: Vital Signs Temperature 98.3 F 12/13/23 14:56 Pulse Rate 79 12/13/23 19:37 Respiratory Rate 16 12/13/23 19:37 Blood Pressure 137/74 12/13/23 19:37 Pulse Oximetry 92 12/13/23 19:37 Oxygen Delivery Me thod Room Air 12/13/23 18:50 MDM - Neck Pain/Injury Medical Decision Making 43-year-old female previously seen by Dr. Baker. Pain is improved currently. She has a chest x-ray that shows interstitial markings in the right lung base, and appropriate position of report. CBC is normal. BMP is not remarkable. Cervical spine CT is not remarkable. She is feeling improved. Her rapid strep is negative. She is still having some throat soreness when she swallows. She may have an acute viral syndrome. Her heart rates better after fluid. She will be allowed discharge. Close outpatient follow-up. Lab Data 12/13/23 18:33 12/13/23 18:33 Radiology Impressions Chest X-Ray 12/13/23 17:19 IMPRESSION: Subtle interstitial markings in the right lung base are nonspecific but can be seen the setting of bronchitis, pulmonary vascular congestion, viral infection and small-vessel airways disease. Cervical Spine CT 12/13/23 17:35 IMPRESSION: No acute findings. Laboratory Results WBC 7.05 10^3/uL (3.29-11.43) 12/13/23 18: RBC 4.02 10^6/uL (3.85-5.65) 12/13/23 18: Hgb 12.40 g/dL (11.27-16.99) 12/13/23 18: Hct 36.7 % (36-47) 12/13/23 18: MCV 91.3 fl (85-98) 12/13/23 18: MCH 30.8 pg (27-33) 12/13/23 18: MCHC 33.8 g/dL (30-55) 12/13/23 18: RDW 12.4 % (12.1-15.1) 12/13/23 18: Plt Count 281 10^3/cmm (157-399) 12/13/23 18: MPV 10.4 fL (7.4-10.4) 12/13/23 18: Neut % (Auto) 58.3 % 12/13/23 18: Lymph % (Auto) 31.6 % 12/13/23 18: Dickens % (Auto) 7.4 % 12/13/23 18: Eos % (Auto) 1.8 % 12/13/23 18: Baso % (Auto) 0.6 % 12/13/23 18: Neut # (Auto) 4.11 10^3/uL (1.8-7.7) 12/13/23 18: Lymph # (Auto) 2.2 10^3/uL (0.8-4.8) 12/13/23 18: Dickens # (Auto) 0.5 10^3/uL (0.2-0.9) 12/13/23 18: Eos # (Auto) 0.1 10^3/uL (0.0-0.8) 12/13/23 18:33 Baso # (Auto) 0.0 10^3/uL (0.0-0.1) 12/13/23 18:33 Nucleated RBC % (auto) 0 % 12/13/23 18: Nucleated RBCs # 0.0 /100WBC 12/13/23 18:33 Sodium 138 mmol/L (136-145) 12/13/23 18:33 Potassium 3.8 mmol/L (3.5-5.1) 12/13/23 18:33 Chloride 105 mmol/L (98-107) 12/13/23 18:33 Carbon Dioxide 24 mmol/L (22-29) 12/13/23 18:33 Anion Gap 12.8 (5-19) 12/13/23 18:33 BUN 20 mg/dL (6-20) 12/13/23 18:33 Creatinine 0.8 mg/dL (0.5-0.9) 12/13/23 18:33 GFR Calculation 79.0 mL/min (90-130) L 12/13/23 18:33 Glucose 140 mg/dL (65-115) H 12/13/23 18:33 Calculated Osmolality 291 mOsm/kg (285-295) 12/13/23 18:33 Calcium 8.2 mg/dL (8.5-10.5) L 12/13/23 18:33 Total Bilirubin 0.2 mg/dL (0.15-1.2) 12/13/23 18:33 AST 17 U/L (0-32) 12/13/23 18: ALT 20 U/L (0-33) 12/13/23 18:33 Alkaline Phosphatase 82 U/L (35-105) 12/13/23 18:33 Total Protein 6.9 g/dL (6.6-8.7) 12/13/23 18: Albumin 4.0 g/dL (3.5-5.2) 12/13/23 18: Globulin 2.9 g/dL (1.3-4.6) 12/13/23 18:33 Group A Strep Rapid Negative (Negative) 12/13/23 19:09 All radiology interpretation(s) finalized by discharge Discharge Plan Discharge Patient Disposition: Home Clinical Impression: Occipital neuralgia of right side Condition: Stable Prescriptions: No Action ibuprofen 800 mg tablet 800 mg PO TID PRN (Reason: Pain) levocetirizine [Xyzal] 5 mg tablet 5 mg PO BEDTIME montelukast [Singulair] 10 mg tablet 10 mg PO QAM nicotine 14 mg/24 hr patch 24 hour 1 patch transdermal .q am Qty: 28 1RF Rx Instructions: Apply one patch every morning to dry skin; remove at bedtime atomoxetine 40 mg capsule 40 mg PO QAM Qty: 7 0RF Rx Instructions: After 80 mg dose for 1 week, take 40 mg once daily for 1 week, then stop albuterol sulfate 90 mcg/actuation HFA aerosol inhaler 2 inh inhalation Q4H PRN (Reason: shortness of breath or wheezing) Qty: 6.7 0RF pantoprazole 20 mg tablet,delayed release (DR/EC) 20 mg PO BID fluticasone propionate 50 mcg/actuation spray,suspension 1 spray INTRANASAL DAILY PRN (Reason: Allergy Symptoms) ondansetron 4 mg tablet,disintegrating 4 mg PO Q6H PRN (Reason: nausea and vomiting) Qty: 14 0RF Discharge Orders: Discharge ED (Routine); Ordered 12/13/23 Ordered By: Gordon De Leon Referrals: Olivia Read PA [Primary Care Provider] - 1-3 days Patient Instructions: Opioid Safety, Pain Management Activity Restrictions/Additional Instructions: Return for return of pain, fever, worsening symptoms including dizziness, weakness, etc. Follow-up with your doctor next week. Coding Level of Care Code ED Director Industrial Relations for Ghass[facility] Zuniga
--- NOTE | 2023-12-13 17:35 | CTR_ITS ---
PROCEDURE INFORMATION: Exam: CT Cervical Spine Without Contrast Exam date and time: 12/13/2023 6:06 PM Age: 43 years old Clinical indication: Prior surgery; Surgery date: 6+ months; Surgery type: Chest port; Patient HX: C/O RT sided neck pain post chiropractic adjustment. History of metastatic melanoma. TECHNIQUE: Imaging protocol: Computed tomography of the cervical spine without contrast. Radiation optimization: All CT scans at this facility use at least one of these dose optimization techniques: automated exposure control; mA and/or kV adjustment per patient size (includes targeted exams where dose is matched to clinical indication); or iterative reconstruction. COMPARISON: MR head wo/w con [id number] 01/30/2023 3:31 PM RADIATION DOSE METRICS: Total DLP (mGy-cm): 274.39 FINDINGS: Bones: No acute fracture. Normal alignment. No significant disc bulge or herniation. No severe spinal canal stenosis. No significant neural foraminal narrowing. Lungs: Lung apices are normal. Soft tissues: Unremarkable. CT/CT cervical spin wo con* [id number] IMPRESSION: No acute findings.
[2023-12-13 18:40] VITALS: RESP 16
[2023-12-13] MEDS: morphine 4 mg/mL SDV 1 mL IVP (18:40)
[2023-12-13 18:44] LABS: Basophils % 0.6 %; Eosinophils # 0.1 10^3/uL (0.0-0.8); Eosinophils % 1.8 %; Hematocrit 36.7 % (36-47); Lymphocytes # 2.2 10^3/uL (0.8-4.8); Lymphocytes % 31.6 %; Mean Corpuscular HGB Conc 33.8 g/dL (30-55); Mean Corpuscular Hemoglobin 30.8 pg (27-33); Mean Corpuscular Volume 91.3 fl (85-98); Mean Platelet Volume 10.4 fL (7.4-10.4); Monocytes # 0.5 10^3/uL (0.2-0.9); Monocytes % 7.4 %; Neutrophils # 4.11 10^3/uL (1.8-7.7); Neutrophils % 58.3 %; Nucleated Red Blood Cells % 0 %; Platelet Count 281 10^3/cmm (157-399); Red Blood Count 4.02 10^6/uL (3.85-5.65); Red Cell Distribution Width 12.4 % (12.1-15.1); White Blood Count 7.05 10^3/uL (3.29-11.43)
[2023-12-13] MEDS: dexamethasone 10 mg/mL INJ IM (18:46)
[2023-12-13] MEDS: ketorolac 30 mg/mL INJ IVP (18:46)
[2023-12-13 18:50] VITALS: BP 124/82; PULSE 81; O2SAT 91
[2023-12-13 18:55] LABS: Alanine Aminotransferase 20 U/L (0-33); Alkaline Phosphatase 82 U/L (35-105); Anion Gap 12.8 (5-19); Aspartate Amino Transferase 17 U/L (0-32); Blood Urea Nitrogen 20 mg/dL (6-20); Calcium 8.2 mg/dL (8.5-10.5); Carbon Dioxide 24 mmol/L (22-29); Chloride 105 mmol/L (98-107); Creatinine Clr Calc Pharmacy 106.5842; Globulin 2.9 g/dL (1.3-4.6); Glucose 140 mg/dL (65-115); Osmolality Calculated 291 mOsm/kg (285-295); Potassium 3.8 mmol/L (3.5-5.1); Sodium 138 mmol/L (136-145); Total Bilirubin 0.2 mg/dL (0.15-1.2); Total Protein 6.9 g/dL (6.6-8.7)
[2023-12-13 19:21] LABS: Rapid Strep A Test Negative (Negative)
[2023-12-13 19:37] VITALS: BP 137/74; PULSE 79; RESP 16; O2SAT 92
== END 2023-12-13 19:38 | disposition home or self-care (01) ==
PROVIDERS: Family Medicine; Emergency Provider Emergency Medicine; PCP Physician Assistant
DX: M54.81 Occipital neuralgia (principal); F17.290 Nicotine dependence, other tobacco product, uncomplicated
CPT/HCPCS: 71045; 72125; 80053; 85025; 87081; 87880; 96374; 96375; 99285; J1100; J1885; J2270

== ENCOUNTER 2024-01-26 13:30 | Oncology outpatient (recurring) (ONCR) | payer MEDICARE, MEDICAID, SELFPAY ==
[2023-12-29 13:45] LABS: Basophils # 0.1 10^3/uL (0.0-0.1); Basophils % 0.7 %; Eosinophils # 0.1 10^3/uL (0.0-0.8); Eosinophils % 1.6 %; Hematocrit 39.4 % (36-47); Lymphocytes # 1.6 10^3/uL (0.8-4.8); Lymphocytes % 23.8 %; Mean Corpuscular HGB Conc 33.2 g/dL (30-55); Mean Corpuscular Hemoglobin 30.3 pg (27-33); Monocytes # 0.5 10^3/uL (0.2-0.9); Monocytes % 7.4 %; Neutrophils # 4.54 10^3/uL (1.8-7.7); Neutrophils % 66.2 %; Nucleated Red Blood Cells % 0 %; Platelet Count 270 10^3/cmm (157-399); Red Blood Count 4.33 10^6/uL (3.85-5.65); Red Cell Distribution Width 11.9 % (12.1-15.1); White Blood Count 6.86 10^3/uL (3.29-11.43)
[2023-12-29 13:55] LABS: Alanine Aminotransferase 16 U/L (0-33); Albumin Level 4.4 g/dL (3.5-5.2); Alkaline Phosphatase 83 U/L (35-105); Aspartate Amino Transferase 18 U/L (0-32); Blood Urea Nitrogen 13 mg/dL (6-20); Calcium 8.6 mg/dL (8.5-10.5); Carbon Dioxide 23 mmol/L (22-29); Chloride 104 mmol/L (98-107); Globulin 2.9 g/dL (1.3-4.6); Glucose 130 mg/dL (65-115); Osmolality Calculated 290 mOsm/kg (285-295); Sodium 139 mmol/L (136-145); Total Bilirubin 0.3 mg/dL (0.15-1.2); Total Protein 7.3 g/dL (6.6-8.7)
--- NOTE | 2024-01-12 15:30 | MM_ITS ---
WS: [id number] BILATERAL 3D TOMOSYNTHESIS DIGITAL SCREENING MAMMOGRAPHY WITH CAD CLINICAL INFORMATION: screening HISTORY: Screening mammogram. No current complaints. COMPARISON: 2013 TECHNIQUE: Bilateral CC and MLO views. FINDINGS: The breasts are composed of heterogeneous fibroglandular density tissue, which can limit the detectio n of small underlying mass lesions. No suspicious mass, asymmetry, calcifications, or architectural d istortion. No evidence of malignancy. A few tiny incidental punctate and scattered calcifications. MM/[place] [id number] IMPRESSION: BI-RADS: 2-Benign FOLLOW UP: 1 Year Follow-up Recommend return to annual screening mammography.
== END 2024-01-26 23:59 | disposition home or self-care (01) ==
LOC: ONCMED 01-27 00:01
PROVIDERS: Nurse Practitioner Family; PCP Physician Assistant; Visit Provider Internal Medicine Medical Oncology
DX: Z53.9 Procedure and treatment not carried out, unspecified reason (principal)
CPT/HCPCS: 36591; 77063; 77067; 80053; 85025; 99213

== ENCOUNTER → 2024-05-11 08:03 | Outpatient (BNVA) | payer MEDICARE, MEDICAID, SELFPAY | PROVIDERS: PCP Physician Assistant; Visit Provider Nurse Practitioner Family | DX: L57.0 Actinic keratosis (principal); D22.39 Melanocytic nevi of other parts of face; L81.4 Other melanin hyperpigmentation; L57.3 Poikiloderma of Civatte; G43.009 Migraine without aura, not intractable, without status migrainosus | CPT/HCPCS: 17000; 99213 ==

== ENCOUNTER 2024-06-01 13:23 | Oncology outpatient (recurring) (ONCR) | payer MEDICARE, MEDICAID, SELFPAY | END 2024-06-26 23:59 | disposition home or self-care (01) | LOC: ONCMED 13:24 | PROVIDERS: PCP Physician Assistant; Visit Provider Internal Medicine Hematology & Oncology | DX: Z45.2 Encounter for adjustment and management of vascular access device (principal) | CPT/HCPCS: 96523 ==

== ENCOUNTER 2024-06-29 07:05 | Outpatient (CLI) | payer MEDICARE, MEDICAID, SELFPAY ==
--- NOTE | 2024-06-29 07:09 | US_ITS ---
WS: [id number] Complete ABDOMINAL ULTRASOUND HISTORY: LT KIDNEY LESION COMPARISON: CT 03/07/2022 Liver: 18.9 cm in length. Liver is slightly enlarged with mild diffuse coarse echotexture. Surface of the liver is very slightly nodular suggesting early changes of cirrhosis. There is no mass. No bile duct dilatation. Portal Vein: Normal hepatopetal flow with monophasic waveform. Gallbladder: Normally distended gallbladder with no stones or wall thickening. CBD: 0.5 cm Pancreas: Normal size and echogenicity. Right kidney: 10.9 cm x 5.3 x 5.0 cm. Cortex:1.2 cm. Normal size and echogenicity. No hydronephrosis or mass. Left kidney: 10.8 cm x 5.0 cm x 5.1 cm. Cortex: 1.1 cm. Normal size kidney. Poorly visualized hypoechoic mass in the superior pole measures 1.1 x 1.1 x 1.1 c m. This is a difficult hepatic mass to accurately visualize. No mass was identified in this location on the CT from 03/07/2022. Spleen: 12.9 cm. Normal size and echogenicity. Aorta and IVC: Unremarkable abdominal aorta and IVC. US/US abdomen complete* [id number] Impression: 1. Difficult evaluation of the LEFT kidney. There is a solid-appearing mass fr om the superior pole measuring 1.1 x 1.1 x 1.1 cm. Consider further evaluation by CT or MRI with renal mass protocol. Additional cross-sectional imaging shoul d be done with and without contrast. 2. Mild hepatic steatosis. Very slight nodular appearance of the surface sugge sting cirrhosis. 3. Normal gallbladder. 4. No renal obstruction.
== END 2024-06-29 07:06 | disposition home or self-care (01) ==
LOC: RAD 07:06
PROVIDERS: PCP Physician Assistant; Visit Provider Internal Medicine
DX: D41.02 Neoplasm of uncertain behavior of left kidney (principal); N28.9 Disorder of kidney and ureter, unspecified; C43.9 Malignant melanoma of skin, unspecified
CPT/HCPCS: 76700

== ENCOUNTER 2024-07-02 09:55 | Emergency (ER) | payer MEDICARE, MEDICAID, SELFPAY ==
--- NOTE | 2024-07-02 10:09 | XR_ITS ---
WS: [id number] XR chest 1V portable [id number] REASON FOR EXAM: chest pain FINDINGS: The chest appears unchanged compared to 12/13/2023. Chemotherapy infusion port over the right chest with right internal jugular catheter with tip in the distal SVC. The heart and the mediastinum are within normal limits. Calcified granulomatous disease in both hemithoraces. No acute pulmonary parenchymal or pleural abnormality. XR/XR chest 1V portable [id number] IMPRESSION: Stable chest without acute abnormality.
[2024-07-02 10:31] VITALS: BP 124/86; PULSE 92; RESP 17; TEMP 37; O2SAT 96; BMI 30.7
[2024-07-02 11:15] LABS: Basophils % 0.7 %; Eosinophils % 0.7 %; Hematocrit 40.2 % (36-47); Lymphocytes # 0.6 10^3/uL (0.8-4.8); Mean Corpuscular HGB Conc 32.3 g/dL (30-55); Mean Corpuscular Hemoglobin 29.7 pg (27-33); Mean Corpuscular Volume 91.8 fl (85-98); Mean Platelet Volume 10.5 fL (7.4-10.4); Monocytes # 0.5 10^3/uL (0.2-0.9); Monocytes % 9.5 %; Neutrophils # 4.11 10^3/uL (1.8-7.7); Neutrophils % 76.9 %; Nucleated Red Blood Cells % 0 %; Platelet Count 204 10^3/cmm (157-399); Red Blood Count 4.38 10^6/uL (3.85-5.65); Red Cell Distribution Width 12.7 % (12.1-15.1); White Blood Count 5.35 10^3/uL (3.29-11.43)
[2024-07-02 11:19] LABS: Influenza A NEGATIVE (Negative); Influenza B NEGATIVE (Negative); Respiratory Syncytial Virus Ce NEGATIVE (Negative)
[2024-07-02 11:22] LABS: Covid PCR Positive (Negative)
[2024-07-02 11:35] LABS: Alanine Aminotransferase 32 U/L (0-33); Albumin Level 4.3 g/dL (3.5-5.2); Alkaline Phosphatase 82 U/L (35-105); Blood Urea Nitrogen 21 mg/dL (6-20); Calcium 9.4 mg/dL (8.5-10.5); Carbon Dioxide 24 mmol/L (22-29); Chloride 101 mmol/L (98-107); Creatinine Clr Calc Pharmacy 101.3096; Globulin 2.8 g/dL (1.3-4.6); Glomerular Filtration Rate 78.7 mL/min (90-130); Glucose 94 mg/dL (65-115); Osmolality Calculated 285 mOsm/kg (285-295); Sodium 136 mmol/L (136-145); Total Bilirubin 0.2 mg/dL (0.15-1.2); Total Protein 7.1 g/dL (6.6-8.7)
[2024-07-02 11:36] LABS: Anion Gap 15.4 (5-19); Aspartate Amino Transferase 23 U/L (0-32); Potassium 4.4 mmol/L (3.5-5.1)
--- NOTE | 2024-07-02 13:18 | ED_ITS ---
HPI - URI/Sore Throat 2 General: Chief Complaint: Upper Respiratory Infection Stated Complaint: body aches Time Seen by Provider: 07/02/24 13:08 Source: patient Mode of arrival: ambulatory Limitations: no limitations History of Present Illness: 44-year-old female who states for the la st 2 days she has had cough congestion body aches sore throat states she also had some nausea she denies any severe dyspnea she is in no distress here denies any vomiting or diarrhea. Unknown sick contacts Associated symptoms: Deny abdominal pain, chills, chest pain, diarrhea, fever(s), headache(s), nausea or vomiting Related Data Home Medications Medication Instructions Recorded Confirmed ibuprofen 800 mg tablet 800 mg PO TID PRN Pain 08/16/21 06/15/24 levocetirizine 5 mg tablet (Xyzal) 5 mg PO BEDTIME 02/11/22 06/15/24 montelukast 10 mg tablet 10 mg PO QAM 02/11/22 06/15/24 (Singulair) fluticasone propionate 50 1 spray intranasal DAILY PRN 11/26/22 06/15/24 mcg/actuation nasal Allergy Symptoms spray,suspension pantoprazole 20 mg tablet,delayed 20 mg PO BID 11/26/22 06/15/24 release conj estrogen-medroxyprogesterone 1 tab PO DAILY 12/29/23 06/15/24 0.45 mg-1.5 mg tablet (Prempro) Previous Rx's Medication Instructions Recorded albuterol sulfate 90 mcg/actuation 2 inh inhalation Q4H PRN shortness 05/17/23 aerosol inhaler of breath or wheezing #6.7 grams ondansetron 4 mg disintegrating 4 mg PO Q6H PRN nausea and 10/20/23 tablet vomiting #14 tabs atomoxetine 40 mg capsule 40 mg PO QAM #30 caps 06/07/24 buspirone 15 mg tablet 15 mg PO BID #60 tabs 06/07/24 buspirone 5 mg tablet 5 mg PO BID #60 tabs 06/15/24 Allergies Allergy/AdvReac Type Severity Reaction Status Date / Time oxycodone Allergy Mild ADR-Itching Verified 06/15/24 15:34 Review of Systems 2 Const: Reports: body aches; Denies: fever(s) or chills ENMT: Reports: throat pain; Denies: dental pain Card: Denies: chest pain Resp: Reports: non-productive cough; Denies: dyspnea GI: Denies: abdominal pain, nausea, vomiting or diarrhea Musc: Denies: neck pain or back pain Skin/Breast: Denies: rash Neuro: Denies: headache(s) PFSH ED 2 PFSH: Medical History Psychiatric care 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, including hip Depression Anxiety History of 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 Status post gamma knife treatment had 4 different procedures History of colitis Surgical History History of endometrial ablation 2010 History of bilateral tubal ligation 2009 History of History of cryosurgery Family History Brother Cancer Melanoma Family/Other Cancer Maternal uncle--melanoma Family/Other Cancer Maternal uncle--liver Denies family history of Diabetes CAD (coronary artery disease) Clotting disorder Hyperlipidemia Chronic kidney disease (CKD) Bleeding disorder Hypertension Stroke Social History Smoking and tobacco/nicotine status: never used tobacco/nicotine Alcohol intake: former 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 date alcohol: 2022 Substance/Drug Use: former Date of last use: 2022 Physical Exam 2 Const: COMMON NORMALS: no acute distress, patient oriented x3 and healthy appearing HENMT: COMMON NORMALS: normocephalic and atraumatic HEAD & SCALP: n ormocephalic and atraumatic THROAT: posterior oropharynx normal Neck/C-Spine: COMMON NORMALS: full ROM and supple Chest: COMMONS NORMALS: normal inspection of the chest and normal palpation of entire chest wall Resp: COMMON NORMALS: normal respiratory effort, No retractions, No use of accessory muscles and clear to auscultation bilaterally AUSCULTATION: clear to auscultation bilaterally Cardio: COMMON NORMALS: regular rate, regular rhythm and No murmurs present (Cardio) RATE: regular rate RHYTHM: regular rhythm Extremity: COMMON NORMALS: normal to inspection and full ROM Neuro: COMMON NORMALS: patient oriented x3, moves all extremities and no focal motor deficits Psych: COMMON NORMALS: mental status grossly normal, Normal thought process present and cooperative THOUGHT PROCESS: Normal thought process present Skin: COMMON NORMALS: no rashes or lesions noted and no wounds GENERAL SKIN EXAM: no rashes or lesions noted Course 2 Vital Signs: Vital signs: Vital Signs Temperature 98.6 F 07/02/24 10:31 Pulse Rate 92 07/02/24 10:31 Respiratory Rate 17 07/02/24 10:31 Blood Pressure 124/86 07/02/24 10:31 Pulse Oximetry 96 07/02/24 10:31 Oxygen Delivery Me thod Room Air 07/02/24 10:31 MDM - URI/Sore Throat Medical Decision Making Patient presents here with cough body aches did test positive for COVID she is well-appearing here no respiratory distress x-ray shows no pneumonia she is stable for discharge Medical Records I reviewed the patient's medical records. Lab Data I reviewed the patient's lab results. 07/02/24 10:58 07/02/24 10:58 Laboratory Results WBC 5.35 10^3/uL (3.29-11.43) 07/02/24 10:58 RBC 4.38 10^6/uL (3.85-5.65) 07/02/24 10:58 Hgb 13.00 g/dL (11.27-16.99) 07/02/24 10:58 Hct 40.2 % (36-47) 07/02/24 10:58 MCV 91.8 fl (85-98) 07/02/24 10:58 MCH 29.7 pg (27-33) 07/02/24 10:58 MCHC 32.3 g/dL (30-55) 07/02/24 10:58 RDW 12.7 % (12.1-15.1) 07/02/24 10:58 Plt Count 204 10^3/cmm (157-399) 07/02/24 10:58 MPV 10.5 fL (7.4-10.4) H 07/02/24 10:58 Neut % (Auto) 76.9 % 07/02/24 10:58 Lymph % (Auto) 12.0 % 07/02/24 10:58 [place] % (Auto) 9.5 % 07/02/24 10:58 Eos % (Auto) 0.7 % 07/02/24 10:58 Baso % (Auto) 0.7 % 07/02/24 10:58 Neut # (Auto) 4.11 10^3/uL (1.8-7.7) 07/02/24 10:58 Lymph # (Auto) 0.6 10^3/uL (0.8-4.8) L 07/02/24 10:58 [place] # (Auto) 0.5 10^3/uL (0.2-0.9) 07/02/24 10:58 Eos # (Auto) 0.0 10^3/uL (0.0-0.8) 07/02/24 10:58 Baso # (Auto) 0.0 10^3/uL (0.0-0.1) 07/02/24 10:58 Nucleated RBC % (auto) 0 % 07/02/24 10:58 Nucleated RBCs # 0.0 /100WBC 07/02/24 10:58 Sodium 136 mmol/L (136-145) 07/02/24 10:58 Potassium 4.4 mmol/L (3.5-5.1) 07/02/24 10:58 Chloride 101 mmol/L (98-107) 07/02/24 10:58 Carbon Dioxide 24 mmol/L (22-29) 07/02/24 10:58 Anion Gap 15.4 (5-19) 07/02/24 10:58 BUN 21 mg/dL (6-20) H 07/02/24 10:58 Creatinine 0.8 mg/dL (0.5-0.9) 07/02/24 10:58 GFR Calculation 78.7 mL/min (90-130) L 07/02/24 10:58 Glucose 94 mg/dL (65-115) 07/02/24 10:58 Calculated Osmolality 285 mOsm/kg (285-295) 07/02/24 10:58 Calcium 9.4 mg/dL (8.5-10.5) 07/02/24 10:58 Total Bilirubin 0.2 mg/dL (0.15-1.2) 07/02/24 10:58 AST 23 U/L (0-32) 07/02/24 10:58 ALT 32 U/L (0-33) 07/02/24 10:58 Alkaline Phosphatase 82 U/L (35-105) 07/02/24 10:58 Total Protein 7.1 g/dL (6.6-8.7) 07/02/24 10:58 Albumin 4.3 g/dL (3.5-5.2) 07/02/24 10:58 Globulin 2.8 g/dL (1.3-4.6) 07/02/24 10:58 Coronavirus (PCR) Positive (Negative) A 07/02/24 10:35 Influenza A (PCR) Negative (Negative) 07/02/24 10:35 Influenza Type B (PCR) Negative (Negative) 07/02/24 10:35 RSV (PCR) Negative (Negative) 07/02/24 10:35 XR interpretation done by ED provider, pending radiology final review ED provider radiology interpretation(s): Chest x-ray shows no acute abnormality Discharge Plan Discharge Patient Disposition: Home Clinical Impression: COVID-19 Condition: Stable Prescriptions: No Action ibuprofen 800 mg tablet 800 mg PO TID PRN (Reason: Pain) levocetirizine [Xyzal] 5 mg tablet 5 mg PO BEDTIME montelukast [Singulair] 10 mg tablet 10 mg PO QAM Prempro 0.45-1.5 mg tablet 1 tab PO DAILY buspirone 5 mg tablet 5 mg PO BID Qty: 60 1RF Rx Instructions: Take one tablet twice a day with the 15 mg twice daily dose albuterol sulfate 90 mcg/actuation HFA aerosol inhaler 2 inh inhalation Q4H PRN (Reason: shortness of breath or wheezing) Qty: 6.7 0RF atomoxetine 40 mg capsule 40 mg PO QAM Qty: 30 0RF Rx Instructions: Take one capsule by mouth every morning buspirone 15 mg tablet 15 mg PO BID Qty: 60 0RF Rx Instructions: Take one tablet morning and evening pantoprazole 20 mg tablet,delayed release (DR/EC) 20 mg PO BID fluticasone propionate 50 mcg/actuation spray,suspension 1 spray INTRANASAL DAILY PRN (Reason: Allergy Symptoms) ondansetron 4 mg tablet,disintegrating 4 mg PO Q6H PRN (Reason: nausea and vomiting) Qty: 14 0RF Discharge Orders: Discharge ED (Routine); Ordered 07/02/24 Ordered By: Giovana Littlejohn Referrals: Olivia Read PA [Primary Care Provider] - 4-7 days Discharge Diet: Advance as tolerated Discharge Activity: Resume usual activity Patient Instructions: COVID-19 (Coronavirus Disease 2019) (ED) Coding Level of Care Code ED Bioinformatics Computer Scientist for Ghassan Zuniga
[2024-07-02] MEDS: ondansetron 2 mg/ML SDV 2 mL 4 MG IM (13:26)
[2024-07-02] MEDS: dexamethasone 10 mg/mL INJ IM (13:26)
[2024-07-02 13:27] VITALS: BP 137/98; PULSE 98; O2SAT 96
[2024-07-02 13:30] VITALS: BP 137/98; PULSE 98; O2SAT 96
== END 2024-07-02 13:31 | disposition home or self-care (01) ==
PROVIDERS: Physician Assistant; Emergency Provider Emergency Medicine; PCP Physician Assistant
DX: U07.1 COVID-19 (principal); Z11.52 Encounter for screening for COVID-19; C43.72 Malignant melanoma of left lower limb, including hip
CPT/HCPCS: 0241U; 71045; 80053; 85025; 96372; 99284; J1100; J2405

== ENCOUNTER 2024-07-19 15:42 | Outpatient (CLI) | payer MEDICARE, MEDICAID, SELFPAY ==
--- NOTE | 2024-07-19 15:44 | MRR_ITS ---
PROCEDURE INFORMATION: Exam: MR Abdomen Without Contrast Exam date and time: 07/19/2024 4:13 PM Age: 44 years old Clinical indication: Abnormal findings; Abnormal radiologic finding of the abdomen; Radiologic exam and body structure: Renal; Prior surgery; Surgery date: 6+ months; Surgery type: Chest port; Patient HX: Metastatic melanoma; Additional info: Renal mass TECHNIQUE: Imaging protocol: Magnetic resonance imaging of the abdomen without contrast. COMPARISON: 1. CT chest abdpel w/*[id number] 03/07/2022 1:52 PM 2. US abdomen complete* [id number] 06/29/2024 7:16 AM FINDINGS: Liver: No mass. Gallbladder and biliary ducts: No acute abnormality. Pancreas: Unremarkable. No ductal dilation. Spleen: Unremarkable. No splenomegaly. Adrenal glands: Heterogeneous right adrenal lesion measuring approximately 3.1 x 2.9 cm. The lesion demonstrates calcification at the margins on prior CT, in on current MRI study demonstrates internal T1 signal hyperintensity with decreased signal on inphase imaging suggesting blood products. Kidneys: Left renal 11.8 mm lateral lower pole benign cyst. No left renal upper pole mass. Stomach and bowel: Visualized stomach and intestines are unremarkable. Intraperitoneal space: No free fluid. Vasculature: No abdominal aortic aneurysm. Lymph nodes: No enlarged nodes. Bones/joints: Unremarkable. No suspicious lesions. Soft tissues: Unremarkable. MR/MR abdomen wo/w con* [id number] IMPRESSION: 1. No left renal upper pole lesion to correlate with the suggested ultrasound finding. 2. 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 3. Left renal small benign cyst. No follow-up imaging is recommended. COMMENTS: Consistent with the [employer]'s Incidental Findings Committee white paper (J Am Josse Radiol 2018): Any incidental renal lesion less than 1 cm or classified as too small to characterize, or any incidental cystic renal lesion characterized as simple-appearing, is likely benign. No follow-up imaging is recommended for these lesions per consensus recommendations based on imaging criteria.
[2024-07-19] MEDS: gadobenate dimeglumine 20 mL vial 18 ML IV (16:33)
== END 2024-07-19 15:43 | disposition home or self-care (01) ==
PROVIDERS: PCP Physician Assistant; Visit Provider Internal Medicine
DX: N28.1 Cyst of kidney, acquired (principal); N28.89 Other specified disorders of kidney and ureter; E27.9 Disorder of adrenal gland, unspecified
CPT/HCPCS: 74183; A9577

== ENCOUNTER 2024-09-06 13:06 | Oncology outpatient (recurring) (ONCR) | payer MEDICARE, MEDICAID, SELFPAY ==
[2024-09-06 14:11] LABS: Estmated Average Glucose 97
[2024-09-06 14:14] LABS: Chol HDL Ratio 3.56 mg/dL (0.0-4.40); Cholesterol 185 mg/dL (0-200); HDL Cholesterol 52 mg/dL (60-100); LDL Cholesterol Calculated 107 mg/dL (50-129); LDL HDL Ratio 2.06 RATIO (0.00-3.22); Triglycerides 132 mg/dL (0-150)
== END 2024-09-24 23:59 | disposition home or self-care (01) ==
PROVIDERS: Nurse Practitioner Psychiatric/Mental Health; PCP Physician Assistant; Visit Provider Internal Medicine Hematology & Oncology
DX: F90.2 Attention-deficit hyperactivity disorder, combined type (principal); F33.1 Major depressive disorder, recurrent, moderate
CPT/HCPCS: 36591; 80061; 83036

== ENCOUNTER 2024-10-18 09:19 | Oncology outpatient (recurring) (ONCR) | payer MEDICARE, MEDICAID, SELFPAY ==
[2024-09-08 15:21] VITALS: BP 141/92; BMI 30.2
== END 2024-10-25 23:59 | disposition home or self-care (01) ==
LOC: ONCMED 09:20
PROVIDERS: PCP Physician Assistant; Visit Provider Internal Medicine Hematology & Oncology
DX: Z45.2 Encounter for adjustment and management of vascular access device (principal)
CPT/HCPCS: 96523

== ENCOUNTER → 2024-11-04 07:53 | Outpatient (BNVA) | payer MEDICARE, MEDICAID, SELFPAY ==
[2024-11-11 12:52] VITALS: BP 141/92; BMI 30.2
== END ==
PROVIDERS: PCP Physician Assistant; Visit Provider Nurse Practitioner Family
DX: G43.009 Migraine without aura, not intractable, without status migrainosus (principal); D22.39 Melanocytic nevi of other parts of face; L81.4 Other melanin hyperpigmentation; L82.1 Other seborrheic keratosis; Z08 Encounter for follow-up examination after completed treatment for malignant neoplasm; Z85.820 Personal history of malignant melanoma of skin; D48.5 Neoplasm of uncertain behavior of skin; L57.0 Actinic keratosis
CPT/HCPCS: 11102; 17000; 99213

== ENCOUNTER 2024-11-09 09:17 | Oncology outpatient (recurring) (ONCR) | payer OTHER, MEDICAID, SELFPAY ==
[2024-09-08 15:21] VITALS: BP 141/92; BMI 30.2
== END 2024-11-24 23:59 | disposition home or self-care (01) ==
PROVIDERS: PCP Physician Assistant; Visit Provider Internal Medicine
DX: Z45.2 Encounter for adjustment and management of vascular access device (principal)
CPT/HCPCS: 96523

== ENCOUNTER → 2024-11-17 11:06 | Outpatient (BNVA) | payer MEDICARE, MEDICAID, SELFPAY ==
[2024-11-11 12:52] VITALS: BP 141/92; BMI 30.2
== END ==
PROVIDERS: PCP Physician Assistant; Visit Provider Dermatology
DX: C44.91 Basal cell carcinoma of skin, unspecified (principal); Z08 Encounter for follow-up examination after completed treatment for malignant neoplasm; Z85.820 Personal history of malignant melanoma of skin; D48.5 Neoplasm of uncertain behavior of skin
CPT/HCPCS: 11102; 99213

== ENCOUNTER → 2024-12-08 14:00 | Outpatient (BNVA) | payer MEDICARE, MEDICAID, SELFPAY ==
[2024-11-11 12:52] VITALS: BP 141/92; BMI 30.2
== END ==
PROVIDERS: PCP Physician Assistant; Visit Provider Dermatology
DX: L24.9 Irritant contact dermatitis, unspecified cause (principal); Z48.817 Encounter for surgical aftercare following surgery on the skin and subcutaneous tissue
CPT/HCPCS: 11603; 13121

== ENCOUNTER → 2024-12-13 14:33 | Outpatient (BNVA) | payer MEDICARE, MEDICAID, SELFPAY ==
[2024-11-11 12:52] VITALS: BP 141/92; BMI 30.2
== END ==
PROVIDERS: PCP Physician Assistant; Visit Provider Dermatology
DX: L24.9 Irritant contact dermatitis, unspecified cause (principal); Z48.817 Encounter for surgical aftercare following surgery on the skin and subcutaneous tissue
CPT/HCPCS: 99213

== ENCOUNTER → 2024-12-27 15:12 | Outpatient (BNVA) | payer OTHER, MEDICAID, SELFPAY ==
[2024-11-11 12:52] VITALS: BP 141/92; BMI 30.2
== END ==
PROVIDERS: PCP Physician Assistant; Visit Provider Nurse Practitioner Family
DX: L24.9 Irritant contact dermatitis, unspecified cause (principal); L57.3 Poikiloderma of Civatte; L82.1 Other seborrheic keratosis; L81.4 Other melanin hyperpigmentation; Z85.820 Personal history of malignant melanoma of skin; Z08 Encounter for follow-up examination after completed treatment for malignant neoplasm; Z85.828 Personal history of other malignant neoplasm of skin
CPT/HCPCS: 99213

== ENCOUNTER 2025-01-14 10:45 | Oncology outpatient (recurring) (ONCR) | payer OTHER, MEDICAID, SELFPAY ==
[2024-11-11 12:52] VITALS: BP 141/92; BMI 30.2
[2024-12-28 10:27] LABS: Basophils # 0.1 10^3/uL (0.0-0.1); Basophils % 0.8 %; Eosinophils # 0.1 10^3/uL (0.0-0.8); Eosinophils % 2.3 %; Hematocrit 38.6 % (36-47); Lymphocytes # 2.3 10^3/uL (0.8-4.8); Lymphocytes % 37.9 %; Mean Corpuscular HGB Conc 33.2 g/dL (30-55); Mean Corpuscular Volume 90.6 fl (85-98); Monocytes # 0.4 10^3/uL (0.2-0.9); Monocytes % 7.3 %; Neutrophils # 3.11 10^3/uL (1.8-7.7); Neutrophils % 51.5 %; Nucleated Red Blood Cells % 0 %; Platelet Count 298 10^3/cmm (157-399); Red Blood Count 4.26 10^6/uL (3.85-5.65); Red Cell Distribution Width 12.2 % (12.1-15.1); White Blood Count 6.04 10^3/uL (3.29-11.43)
[2024-12-28 10:38] LABS: Alanine Aminotransferase 22 U/L (0-33); Albumin Level 4.2 g/dL (3.5-5.2); Alkaline Phosphatase 70 U/L (35-105); Anion Gap 14.1 (5-19); Aspartate Amino Transferase 20 U/L (0-32); Blood Urea Nitrogen 16 mg/dL (6-20); Calcium 8.6 mg/dL (8.5-10.5); Carbon Dioxide 23 mmol/L (22-29); Chloride 105 mmol/L (98-107); Globulin 2.7 g/dL (1.3-4.6); Glomerular Filtration Rate 78.7 mL/min (90-130); Glucose 112 mg/dL (65-115); Osmolality Calculated 288 mOsm/kg (285-295); Potassium 4.1 mmol/L (3.5-5.1); Sodium 138 mmol/L (136-145); Total Bilirubin 0.3 mg/dL (0.15-1.2); Total Protein 6.9 g/dL (6.6-8.7)
== END 2025-01-24 23:59 | disposition home or self-care (01) ==
PROVIDERS: PCP Physician Assistant; Visit Provider Nurse Practitioner
DX: Z45.2 Encounter for adjustment and management of vascular access device; Z95.828 Presence of other vascular implants and grafts; Z53.9 Procedure and treatment not carried out, unspecified reason
CPT/HCPCS: 36591; 80053; 85025; 96523; 99214

== ENCOUNTER 2025-02-21 08:48 | Oncology outpatient (recurring) (ONCR) | payer OTHER, MEDICAID, SELFPAY ==
[2024-11-11 12:52] VITALS: BP 141/92; BMI 30.2
== END 2025-02-24 23:59 | disposition home or self-care (01) ==
PROVIDERS: PCP Physician Assistant; Visit Provider Nurse Practitioner
DX: Z45.2 Encounter for adjustment and management of vascular access device (principal); Z95.828 Presence of other vascular implants and grafts
CPT/HCPCS: 96523

== ENCOUNTER 2025-03-25 10:21 | Oncology outpatient (recurring) (ONCR) | payer OTHER, MEDICAID, SELFPAY ==
[2024-11-11 12:52] VITALS: BP 141/92; BMI 30.2
== END 2025-03-27 23:59 | disposition home or self-care (01) ==
PROVIDERS: PCP Physician Assistant; Visit Provider Nurse Practitioner
DX: Z45.2 Encounter for adjustment and management of vascular access device (principal); Z95.828 Presence of other vascular implants and grafts
CPT/HCPCS: 96523

== ENCOUNTER → 2025-04-04 08:57 | Outpatient (BNVA) | payer MEDICARE, MEDICAID, SELFPAY ==
[2024-11-11 12:52] VITALS: BP 141/92; BMI 30.2
== END ==
PROVIDERS: PCP Physician Assistant; Visit Provider Internal Medicine
DX: Z03.89 Encounter for observation for other suspected diseases and conditions ruled out (principal); R00.1 Bradycardia, unspecified
CPT/HCPCS: 93005

== ENCOUNTER 2025-04-06 08:39 | Outpatient (CLI) | payer OTHER, MEDICAID, SELFPAY ==
[2024-11-11 12:52] VITALS: BP 141/92; BMI 30.2
--- NOTE | 2025-04-06 08:45 | MM_ITS ---
WS: [id number] SCREENING DIGITAL BREAST TOMOSYNTHESIS MAMMOGRAM WITH CAD HISTORY: SCREENING COMPARISON: 01/12/2024, 07/04/2014 Bilateral CC and MLO with tomosynthesis and synthetic mammography submitted. Computer aided detection analyzed. Breast composition: The breasts are heterogeneously dense, which may obscure small masses. There is a new asymmetry in the upper outer quadrant of the LEFT breast at a posterior depth. This asymmetry is an area of dense fibroglandular tissue. There is no discrete mass. No obvious distortion. RIGHT breast is negative. MM/MM [facility] tomosynthesis [id number] IMPRESSION: BI-RADS: 0 - Incomplete: Need additional imaging evaluation FOLLOW UP: Need Additional Imaging LEFT breast: Spot compression views (CC and MLO). True ML. Ultrasound to follow if abnormality persists.
== END 2025-04-06 08:40 | disposition home or self-care (01) ==
LOC: RAD 08:39
PROVIDERS: PCP Physician Assistant; Visit Provider Physician Assistant
DX: Z12.31 Encounter for screening mammogram for malignant neoplasm of breast (principal); R92.333 Mammographic heterogeneous density, bilateral breasts
CPT/HCPCS: 77063; 77067

== ENCOUNTER → 2025-04-08 14:57 | Outpatient (BNVA) | payer OTHER, MEDICAID, SELFPAY ==
[2024-11-11 12:52] VITALS: BP 141/92; BMI 30.2
== END ==
PROVIDERS: PCP Physician Assistant; Visit Provider Nurse Practitioner Family
DX: S90.912A Unspecified superficial injury of left ankle, initial encounter (principal); X58.XXXA Exposure to other specified factors, initial encounter; L57.3 Poikiloderma of Civatte; L82.1 Other seborrheic keratosis; L81.4 Other melanin hyperpigmentation; Z85.820 Personal history of malignant melanoma of skin; Z08 Encounter for follow-up examination after completed treatment for malignant neoplasm; Z85.828 Personal history of other malignant neoplasm of skin; L82.0 Inflamed seborrheic keratosis; L29.89 Other pruritus; L53.8 Other specified erythematous conditions; R20.8 Other disturbances of skin sensation
CPT/HCPCS: 17110; 99213

== ENCOUNTER 2025-04-26 08:15 | Outpatient (CLI) | payer MEDICARE, MEDICAID, SELFPAY ==
[2024-11-11 12:52] VITALS: BP 141/92; BMI 30.2
--- NOTE | 2025-04-26 08:20 | MM_ITS ---
WS: [id number] ADDITIONAL VIEWS LEFT MAMMOGRAM WITH DIGITAL BREAST TOMOSYNTHESIS. HISTORY: ABNORMAL MAMMOGRAM COMPARISON: 04/06/2025, 01/12/2024 Spot compression views LEFT breast in CC, MLO projections and true ML submitted with digital breast tomosynthesis and . Breast composition: The breasts are heterogeneously dense, which may obscure small masses. The asymmetry in the upper outer quadrant of the LEFT breast is less apparent and less concerning with additional spot compression views. Consistent with normal fibroglandular superimposed breast tissue. There is no distortion or mass identified. MM/MM diag LT tomosynthesis [id number] IMPRESSION: BI-RADS: 2 - Benign FOLLOW UP: 1 Year Follow-up Return to annual screening mammography.
== END 2025-04-26 08:16 | disposition home or self-care (01) ==
LOC: RAD 08:16
PROVIDERS: PCP Physician Assistant; Visit Provider Physician Assistant
DX: R92.8 Other abnormal and inconclusive findings on diagnostic imaging of breast (principal); R92.333 Mammographic heterogeneous density, bilateral breasts; N64.89 Other specified disorders of breast; R92.323 Mammographic fibroglandular density, bilateral breasts
CPT/HCPCS: 77061; G0279

== ENCOUNTER 2025-05-02 09:02 | Oncology outpatient (recurring) (ONCR) | payer OTHER, MEDICAID, SELFPAY ==
[2024-11-11 12:52] VITALS: BP 141/92; BMI 30.2
[2025-05-02] MEDS: alteplase 1 mg/mL SDV 2 mL 2 MG INTRACATH (09:19)
== END 2025-05-27 23:59 | disposition home or self-care (01) ==
PROVIDERS: PCP Physician Assistant; Visit Provider Nurse Practitioner
DX: Z45.2 Encounter for adjustment and management of vascular access device (principal); Z95.828 Presence of other vascular implants and grafts; T82.9XXA Unspecified complication of cardiac and vascular prosthetic device, implant and graft, initial encounter; X58.XXXA Exposure to other specified factors, initial encounter
CPT/HCPCS: 36593; 96523; J2997

== ENCOUNTER → 2025-07-01 09:10 | Outpatient (BNVA) | payer OTHER, MEDICAID, SELFPAY ==
[2024-11-11 12:52] VITALS: BP 141/92; BMI 30.2
== END ==
PROVIDERS: PCP Physician Assistant; Visit Provider Nurse Practitioner Family
DX: L57.3 Poikiloderma of Civatte (principal); L82.1 Other seborrheic keratosis; L81.4 Other melanin hyperpigmentation; Z85.820 Personal history of malignant melanoma of skin; Z08 Encounter for follow-up examination after completed treatment for malignant neoplasm; Z85.828 Personal history of other malignant neoplasm of skin; L91.8 Other hypertrophic disorders of the skin; L53.8 Other specified erythematous conditions; R20.8 Other disturbances of skin sensation; L29.89 Other pruritus; L57.0 Actinic keratosis
CPT/HCPCS: 17000; 17110; 99213